=== PATIENT | male | born 1995 | race Two or more races ===

== ENCOUNTER 2024-07-02 15:13 | Emergency (ER) | payer MEDICAID, SELFPAY ==
--- NOTE | 2024-07-02 15:16 | EKG_ITS ---
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
[2024-07-02 15:20] VITALS: BP 165/107; PULSE 127; RESP 18; TEMP 37.1; O2SAT 97
[2024-07-02 15:36] VITALS: BMI 33.5
--- NOTE | 2024-07-02 15:52 | EDNOTE_ITS ---
ED Arrhythmia Palp. RME/HPI General Chief Complaint: Arrhythmia/Palpitations Stated Complaint: MEDICAL CLEARANCE Time Seen by Provider: 07/02/24 15:16 Arrival date/time: 07/02/24 15:13 RME / HPI RME / HPI narrative: This section includes all my notes and documentations, including HPI, PE, and ED course. Wiliam Dockery MD HPI: 29-year-old male here for medical clearance for incarceration due to high BP and fast heart rate. Patient admits to using speed. He reports no chest pain or shortness of breath. No headache or dizziness. No palpitations. No other complaints. ROS: All negative except as documented in HPI. Physical Exam: General: Alert and oriented. No acute distress. Eyes: Conjunctivae and lids clear. EOMI. PERRL. ENT: No nasal congestion. Neck: Supple. No JVD. Heart: RRR. Lungs: No respiratory distress. Good air movement. No rhonchi, wheezing, rales. Abdomen: Soft and nontender. Normal bowel sounds. No distension. No rebound or guarding. Legs: No clubbing, cyanosis, edema. Skin: Warm and dry. Neuro: Alert and oriented X 3. Cranial Nerves II-XII grossly intact. No peripheral motor deficits. My interpretation of the EKG is sinus rhythm with nonspecific ST-T changes. Treatment here included oral metoprolol 100 mg and oral clonidine 0.3 mg. Significant improvement noted subjectively and objectively. Patient declined diagnostic tests, including blood and urine tests. Based on my best medical judgment, made decision to medically clear the patient for incarceration and no further evaluation or treatment indicated at this time. Patient understands and agrees to the discharge instructions customized and printed, see below. Discharge instructions from Dr. Dockery: 1. After evaluation and treatment, including lowering your BP and heart rate, you are medically clear for incarceration. 2. See a private doctor on 07/03/2024 or when you are released for recheck and further care. Ask to help you stay healthy, helping you to quit all drugs, helping to lower your BP and heart rate, helping you to prevent future heart attacks and strokes, and with regular physical exam and health maintenance. 3. Seek immediate medical care with chest pain or with any concerns. Wiliam Dockery MD Related Data Previous Rx's ?Medication ?Instructions ?Recorded alprazolam 0.25 mg tablet (Xanax) 0.25 mg PO BID PRN anxiety #10 tabs 01/09/20 Allergies Allergy/AdvReac Type Severity Reaction Status Date / Time No Known Allergies Allergy Verified 01/09/20 11:17 Course Quality Measures none Orders Category Date Time Status EKG (ED ONLY) *Do not use* NOW Care 07/02/24 15:16 Active EKG (ED Only) Stat Exams 07/02/24 15:16 Draft Metoprolol Tartrate [Lopressor] Med 07/02/24 15:51 Once 100 mg PO X1 ONE cloNIDine HCL [Catapres] Med 07/02/24 15:51 Once 0.3 mg PO X1 ONE Vital Signs Vital signs: Vital Signs Temperature 98.7 F 07/02/24 15:20 Pulse Rate 127 H 07/02/24 15:20 Respiratory Rate 18 07/02/24 15:20 Blood Pressure 165/107 H 07/02/24 15:20 Pulse Oximetry (%) 97 07/02/24 15:20 Oxygen Delivery Method Room Air 07/02/24 15:20 Arrhythmia/Palpitations Patient data External records reviewed:: [facility] previous records Clinical information provided by:: patient and law enforcement Social determinants that could affect healthcare access:: substance use Patient has the following chronic illnesses:: Substance abuse How is presenting disease/condition affected by chronic disease/condition?: exac erbated by Evaluation data The following diagnostics were reviewed and interpreted by me:: EKG tracing(s) (My interpretation of the EKG is: Sinus tachycardia (130 bpm) with nonspecific ST-T changes. Wiliam Dockery MD) Lab and/or radiology exams considered but not ordered:: None Interpretation Summary: Sinus tachycardia and elevated BP Medications / Prescriptions Medications or Prescriptions considered but not ordered:: None Medication administrations:: Medication Administration History Clonidine (Clonidine Hcl 0.1 Mg Tablet) 0.3 mg PO X1 ONE Stop: 07/02/24 15:52 Metoprolol Tartrate (Metoprolol Tartrate 25 Mg Tablet) 100 mg PO X1 ONE Stop: 07/02/24 15:52 Consultations Consultation(s) initiated? (list below): No Diagnosis Differential diagnosis arrhythmia/palpitations: palpitations, anxiety and sinus tachycardia Most likely diagnosis given after review of the tests above:: Sinus tachycardia and elevated BP Admission Indicated Admission indicated?: not indicated Explain why admission is indicated or not indicated:: Admission criteria not met Admission Request Was there a request for admission?: No Disposition Plan Disposition Plan: Discharge Discharge Attestation Discharge Attestation: The patient and all family members were given an opportunity to ask questions and understood the discharge instructions. Discharge instructions specifically effects, indications for sooner follow up or return to the emergency department, and the expected course of current diagnosis. Patient condition: Stable Discharge Plan Plan Patient Disposition: Half-Way/Court/Law Prescriptions/Referrals Prescriptions/Med Rec: No Action alprazolam [Xanax] 0.25 mg tablet 0.25 mg PO BID PRN (Reason: anxiety) Qty: 10 0RF Problem List Clinical Impression: Medical clearance for incarceration Patient/Caregiver Discharge Instructions Discharge Activity: activity as tolerated Education Materials: ED Drug Abuse, ED Hypertension, To Be Confirmed Additional Instructions: Discharge instructions from Dr. Dockery: 1. After evaluation and treatment, including lowering your BP and heart rate, you are medically clear for incarceration. 2. See a private doctor on 07/03/2024 or when you are released for recheck and further care. Ask to help you stay healthy, helping you to quit all drugs, helping to lower your BP and heart rate, helping you to prevent future heart attacks and strokes, and with regular physical exam and health maintenance. 3. Seek immediate medical care with chest pain or with any concerns. Print Language: Mongolian
[2024-07-02 16:06] VITALS: BP 165/107; PULSE 127
[2024-07-02] MEDS: cloNIDine HCL 0.1 MG TABLET 0.3 MG PO (16:06)
[2024-07-02 16:07] VITALS: BP 165/107; PULSE 127
[2024-07-02] MEDS: METOPROLOL TARTRATE 25 MG TABLET 100 MG PO (16:07)
[2024-07-02 16:09] VITALS: BP 174/110; PULSE 128; RESP 16; TEMP 36.9; O2SAT 95
== END 2024-07-02 17:13 ==
PROVIDERS: Emergency Provider Emergency Medicine
DX: Z02.89 Encounter for other administrative examinations (principal); R00.0 Tachycardia, unspecified
CPT/HCPCS: 93005; 99283; A9270

== ENCOUNTER 2025-02-06 13:20 | Emergency (ER) | payer MEDICAID, SELFPAY ==
[2025-02-06 13:22] VITALS: BMI 35.9
[2025-02-06 13:41] VITALS: BP 157/89; PULSE 88; RESP 20; TEMP 36.7; O2SAT 96
[2025-02-06 14:24] LABS: Basophils # (Auto) 0.0 Thou/mm3 (0.0-0.2); Basophils % (Auto) 0 % (0-2.5); Eosinophils # (Auto) 0.1 Thou/mm3 (0.0-0.5); Eosinophils % (Auto) 1 % (0-10); Hematocrit 40.8 % (41.0-53.0); Hemoglobin 14.9 g/dL (13.5-16.0); Immature Granulocytes Auto 0.04 Thou/mm3 (0.00-0.00); Lymphocytes # (Auto) 1.9 Thou/mm3 (1.0-4.8); Lymphocytes % (Auto) 15 % (10-50); Mean Corpuscular HGB Conc 36.5 g/dl (31.0-37.0); Mean Corpuscular Hemoglobin 30.3 pg (25.0-35.0); Mean Corpuscular Volume 83 fL (80-100); Monocytes # (Auto) 0.8 Thou/mm3 (0.0-0.8); Monocytes % (Auto) 6 % (0-12); Neutrophils # (Auto) 9.5 Thou/mm3 (1.8-7.7); Neutrophils % (Auto) 78 % (37-80); Nucleated Red Blood Cell # 0.00 Thou/mm3 (0.00-0.00); Nucleated Red Blood Cell % 0 /100 WBC (0); Platelet Count 257 Thou/mm3 (140-440); RDW Standard Deviation 38.2 fL (35.1-43.9); Red Blood Count 4.92 Miln/mm3 (4.50-5.90); White Blood Count 12.3 Thou/mm3 (3.8-10.6)
--- NOTE | 2025-02-06 14:33 | EDNOTE_ITS ---
ED Psych RME/HPI General Chief Complaint: Psychiatric Symptoms Stated Complaint: SI, SELF HARM, + AUDITORY HALLUCINATIONS Time Seen by Provider: 02/06/25 14:10 Arrival date/time: 02/06/25 13:20 Limitations: no limitations RME / HPI RME / HPI Narrative: DR. BACA MAIN ED EVALUATION: 29 year old male presents to the Emergency Department with complaint of suicidal ideation, reporting statements such as ?trying to hang myself.? Patient was accompanied by a friend who escorted them in. The patient has a known history of bipolar disorder, diabetes, and substance use disorder. They report a prior suicide attempt by hanging approximately 1.5 years ago. Recently released from incarceration after 10 years, and currently admits to active drug use. Denies current physical injury, but states ongoing emotional distress and suicidal thoughts. Related Data Previous Rx's ?Medication ?Instructions ?Recorded alprazolam 0.25 mg tablet (Xanax) 0.25 mg PO BID PRN a nxiety #10 tabs 01/09/20 Allergies Allergy/AdvReac Type Severity Reaction Status Date / Time No Known Allergies Allergy Verified 02/06/25 13:24 Review of Systems Review of Systems Systems Reviewed: All systems reviewed, normal except as documented Past Medical History Past Medical History CARDIAC: Positive Hypertension GASTROINTESTINAL: Positive Obesity PSYCHO/SOCIAL: Positive Psychiatric Problems, Schizophrenia, Bipolar Disorder, Depression, Anxiety and Behavior Problems Social History SMOKING STATUS: Current every day smoker ED Exam General Limitations: Present no limitations General appearance: Present alert and in no apparent distress Head Head exam: Present atraumatic, normocephalic and normal inspection Eye Eye exam: Present normal appearance, PERRL and EOMI ENT ENT exam: Present normal exam, normal oropharynx and mucous membranes moist Neck Neck exam: Present normal inspection, full ROM and trachea midline Chest Chest inspection: Present normal inspection and symmetric chest wall rise Respiratory Respiratory exam: Present normal lung sounds bilaterally Cardiovascular Cardiovascular exam: Present regular rate, normal rhythm and normal heart sounds Abdominal Exam Abdominal exam: Present soft and normal bowel sounds Extremities Exam Extremities exam: Present normal inspection and full ROM Back Exam Back exam: Present normal inspection and full ROM Neurological Exam Neurological exam: Present alert, oriented X3 and CN II-XII intact Psychiatric Psychiatric exam: Present normal affect and normal mood Skin Skin exam: Present warm, dry, intact and normal color Course Quality Measures none Orders Category Date Time Status Acetaminophen Stat Lab 02/06/25 14:03 Completed Alcohol, Blood Medical Stat Lab 02/06/25 14:03 Completed Alcohol, Urine Stat Lab 02/06/25 15:12 Completed CBC Stat Lab 02/06/25 14:03 Completed CMP [Comprehensive Metabolic Panel] Stat Lab 02/06/25 14:03 Completed Drug Screen,Urine Stat Lab 02/06/25 15:12 Completed Salicylate Stat Lab 02/06/25 14:03 Completed LORazepam [Ativan] Med 02/06/25 14:33 Discontinued 1 mg PO X1 ONE Vital Signs Vital signs: Vital Signs Temperature 98.1 F 02/06/25 13:41 Pulse Rate 88 02/06/25 13:41 Respiratory Rate 20 02/06/25 13:41 Blood Pressure 157/89 H 02/06/25 13:41 Pulse Oximetry (%) 96 02/06/25 13:41 Oxygen Delivery Method Room Air 02/06/25 13:41 Psych MDM Narrative MDM Narrative:: ILakeshia am scribing for and in the presence of Dr. Baca. Patient data External records reviewed:: [facility] previous records Clinical information provided by:: patient Social determinants that could affect healthcare access:: substance use Patient has the following chronic illnesses:: The patient has a known history of bipolar disorder, diabetes, and substance use disorder. They report a prior suicide attempt by hanging approximately 1.5 years ago. How is presenting disease/condition affected by chronic disease/condition?: caused by Evaluation data The following diagnostics were reviewed and interpreted by me:: lab results Lab and/or radiology exams considered but not ordered:: none Interpretation Summary: no acute findings Medications / Prescriptions Medications or Prescriptions considered but not ordered:: none Medication administrations:: Medication Administration History Discontinued Medications Lorazepam (Lorazepam 0.5 Mg Tablet) 1 mg PO X1 ONE Stop: 02/06/25 14:34 Last Admin: 02/06/25 14:54 Dose: 1 mg Documented By: see above if any Consultations Consultation(s) initiated? (list below): Yes Diagnosis Psych Differential Diagnosis: acute psychosis, chronic schizophrenia, suicidal ideation, bipolar disorder, drug-induced psychotic disorder, acute anxiety and other Most likely diagnosis given after review of the tests above:: Chronic schizophrenia Bipolar disorder Admission Indicated Admission indicated?: not indicated Admission Request Was there a request for admission?: No Disposition Plan Disposition Plan: other (specify) (transfer to [facility]) Discharge Plan Plan Patient Disposition: [facility] Patient condition on transfer: Stable Prescriptions/Referrals Prescriptions/Med Rec: No Action alprazolam [Xanax] 0.25 mg tablet 0.25 mg PO BID PRN (Reason: anxiety) Qty: 10 0RF Referrals: No Primary/Family,Physician [Primary Care Provider] - In 1 week Problem List Clinical Impression: Chronic schizophrenia, Bipolar disorder Patient/Caregiver Discharge Instructions Print Language: Romansh Stand Alone Forms: [employer] Award Info., Patient Portal Info Letter
[2025-02-06 14:37] LABS: Alanine Aminotransferase 44 U/L (10-49); Albumin, Serum 4.6 gm/dL (3.5-5.0); Albumin/Globulin Ratio 1.4 (1.2-2.2); Alkaline Phosphatase 78 U/L (46-116); Anion Gap 9 (7-16); Aspartate Amino Transferase 29 U/L (0-34); BUN/Creatinine Ratio 13 Ratio (12-20); Bilirubin,Total 0.4 mg/dL (0.3-1.2); Blood Urea Nitrogen 13 mg/dL (9-23); Calcium 9.8 mg/dL (8.3-10.6); Calcium (Corrected) 9.8 mg/dL (8.5-10.1); Carbon Dioxide 26.0 mMol/L (20.0-31.0); Chloride 106 mMol/L (98-107); Creatinine (Component) 1.0 mg/dL (0.6-1.3); Estimated Creatinine Clearance 135.0 mL/min (>60); Globulin 3.2 gm/dL (2.3-3.5); Glucose 284 mg/dL (74-106); Osmolality,Calculated 291 (275-295); Potassium 4.3 mMol/L (3.4-5.1); Sodium 141 mMol/L (136-145); Total Protein 7.8 gm/dL (5.7-8.2); eGFR > 60 See Note
[2025-02-06 15:29] LABS: Acetaminophen < 2.0 mcg/mL (10.0-20.0); Alcohol, Blood Medical < 10.0 mg/dL (0-10.0); Salicylate < 3.0 mg/dL
[2025-02-06 15:30] LABS: Alcohol, Urine Negative (Negative); Amphetamine/Methamp Scrn,U Negative (Negative); Barbiturate Screen,Urine Negative (Negative); Benzodiazepines Screen,Urine Negative (Negative); Benzoylecgonine Screen, Ur Negative (Negative); Fentanyl Screen,Urine Negative (Negative); Opiate Screen,Urine Negative (Negative); THC Screen,Urine Negative (Negative)
[2025-02-06 16:04] VITALS: BP 155/84; PULSE 74; RESP 16; TEMP 37.3; O2SAT 100
--- NOTE | 2025-02-06 16:08 | PC.CC ---
Patient is a 29 year-old male who presents to the hospital for a mental health evaluation due to suicidal ideation with plan and intention. OFEWLc made [id number] contact with patient to complete assessment. ASW introduced self, role, and reason for assessment. ASW disclosed limits of confidentiality as well. Patient appeared alert and oriented to self, place, and situation. Patient made appropriate eye contact with this race and sports book writer. Patients mood appeared to euthymic throughout assessment, patient had good insight and judgement. No signs of delusions, paranoid or V/h. Patient reports he has been having suicidal ideations that started today. Patient reports he wanted to get something to hang himself. ASW explored with patient what stopped him he reports that there was too many people around. Patient reports his baseline is having auditory hallucinations and hears voices calling his name daily. Patient disclosed he has been having signs of . Patient stated, ?Who knows what could happen I could burn myself or self-mutilate.? Patient reports I can wake up and kill myself tomorrow. At the time of encounter patient denied homicidal ideations and visual hallucinations. Patient reports he has mental health history of Schizophrenia-Bipolar Type and Major Depressive Disorder. Patient reports he was recently released from incarceration and was released with 10mg of Ambilify. Patient is not currently connected to outpatient mental health services and reports the last time he was connected was to [facility]. Per patient, he has been incarcerated for the 10 years off and on. ? Patient reports he has been placed on 2 5150-holds in the past but does not recall the dates. Patient reports that one was for OD on pills and the other was for self-mutilation. Patient reports he ambulates independently and is able to complete his own ADLs. Patient?s [place] Screening was High Risk. Patient toxicology was negative. Patient reports he does not feel safety planning as he could wake up tomorrow and attempt suicide. Upon clinical consultation with VIDEO PRODUCER, Sherin Strange patient will be placed on a 5150-hold for Danger to Others. Patient was provided with advisement of 5150-hold and provided with patient?s rights handbook. ASW provided update to medical team. ASW to send referral via [facility] to [facility] Facilities.
--- NOTE | 2025-02-06 17:20 | PC.CC ---
Xiomy MURILLO was provided with accepting information. Patient was accepted to [facility] by Dr. Whitmore into [address]. ASW provided update to patient and medical team. ASW to arrange transportation.
[2025-02-06 18:29] VITALS: BP 149/86; PULSE 88; RESP 18; TEMP 36.7; O2SAT 97
[2025-02-06 20:02] VITALS: BP 130/78; PULSE 78; RESP 19; TEMP 36.9; O2SAT 98
--- NOTE | 2025-02-06 20:36 | PC.NURSE ---
PREVIOUS DAY GEE RG GAVE HANDOFF WITH PATIENT SEARCHED AND ROOM CLEARED.
== END 2025-02-06 20:50 ==
PROVIDERS: Nurse Practitioner Primary Care; Emergency Provider Family Medicine
DX: Z00.8 Encounter for other general examination (principal); F20.9 Schizophrenia, unspecified; F31.9 Bipolar disorder, unspecified; Z75.1 Person awaiting admission to adequate facility elsewhere
CPT/HCPCS: 36415; 80053; 80307; 80320; 80329; 85025; 96127; 99284; A9270; G0480

== ENCOUNTER 2025-06-20 01:04 | Inpatient (IN) | payer MEDICAID, SELFPAY ==
[2025-06-20] VITALS (30 sets, daily range): BP systolic 126–170; BP diastolic 69–124; PULSE 86–130; RESP 12–99; TEMP 36.3–37.3; O2SAT 95–99; BMI 33.4; BMI 33.6
--- NOTE | 2025-06-20 01:43 | EKG_ITS ---
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
--- NOTE | 2025-06-20 01:54 | EDNOTE_ITS ---
Nausea/Vomit./Diarrhea-RME/HPI General Chief complaint: Nausea/Vomiting/Diarrhea Stated complaint: HEART BURN Time Seen by Provider: 06/20/25 01:43 Arrival date/time: 06/20/25 01:04 30M with history of psych/drug use (meth 2 days ago) and DM presents to ED with epigastric heartburn pain that goes to throat, as well as N/V. Patient denies recent alcohol use. Limitations: no limitations Related Data Home Medications ?Medication ?Instructions ?Recorded ?Confirmed divalproex 500 mg tablet,extended 1,500 mg PO HS 06/2006/20/25 release 24 hr (Depakote ER) quetiapine 400 mg tablet,extended 400 mg PO HS 5 06/20/25 release 24 hr (Seroquel XR) Allergies Allergy/AdvReac Type Severity Reaction Status Date / Time No Known Allergies Allergy Verified 02/06/25 13:24 Review of Systems Review of Systems Systems Reviewed: All systems reviewed, normal except as documented Gastrointestinal Gastrointestinal: Reports as per HPI, Reports abdominal pain, Reports nausea and Reports vomiting Past Medical History Past Medical History CARDIAC: Positive Hypertension; Negative Congestive Heart Failure RESPIRATORY: Negative Chronic Obstructive Pulmonary Disease (COPD) GASTROINTESTINAL: Positive Obesity GENITOURINARY: Negative Renal Disease ENDOCRINE: Negative Diabetes Mellitus Type 1 or Diabetes Mellitus Type 2 PSYCHO/SOCIAL: Positive Psychiatric Problems, Schizophrenia, Bipolar Disorder, Depression, Anxiety and Behavior Problems Social History SMOKING STATUS: Current every day smoker ED Exam General Limitations: Present no limitations General appearance: Present alert and anxious Head Head exam: Present atraumatic ENT ENT exam: Present normal exam, normal oropharynx and mucous membranes moist Neck Neck exam: Present normal inspection, full ROM and trachea midline Chest Chest inspection: Present normal inspection and symmetric chest wall rise Abdominal Exam Abdominal exam: Present soft; Absent tenderness Neurological Exam Neurological exam: Present alert and oriented X3 Psychiatric Psychiatric exam: Present normal affect and anxious Skin Skin exam: Present warm, dry, intact and normal color Course Quality Measures none Orders Category Date Time Status Admit to Inpatient Status Routine Admission 06/20/25 06:11 Active Patient Condition Routine Admission 06/20/25 06:11 Ordered Bedside Blood Glucose Q1H Care 06/20/25 06:08 Active Music Education Adjunct Professor Q4H Care 06/20/25 06:08 Active DKA Protocol QSHIFT Care 06/20/25 06:08 Active EKG (ED ONLY) *Do not use* NOW Care 06/20/25 01:43 Completed Insert IV NOW Care 06/20/25 01:43 Active NPO NOW Care 06/20/25 06:10 Active Notify provider NEEDED Care 06/20/25 06:08 Active Sequential Compression Device QSHIFT Care 06/20/25 06:10 Active Referral Registered Dietitian Routine Cons 06/20/25 06:08 Active Diet NPO (NOW) Diet 06/20/25 06:10 Active EKG (ED Only) Stat Exams 06/20/25 01:43 Draft XR chest 1V portable Stat Exams 06/20/25 05:24 Completed Alcohol, Blood Medical Stat Lab 06/20/25 02:02 Completed Beta Hydroxybutyrate DAILY Lab 06/21/25 09:00 Ordered Beta Hydroxybutyrate DAILY Lab 06/22/25 09:00 Ordered Beta Hydroxybutyrate DAILY Lab 06/23/25 09:00 Ordered Beta Hydroxybutyrate Stat Lab 06/20/25 05:30 Completed Blood Culture (Lab) Routine Lab 06/20/25 07:10 Received CBC AM DRAW Lab 06/21/25 05:00 Ordered CBC AM DRAW Lab 06/22/25 05:00 Ordered CBC AM DRAW Lab 06/23/25 05:00 Ordered CBC Stat Lab 06/20/25 02:02 Completed CMP [Comprehensive Metabolic Panel] Stat Lab 06/20/25 02:02 Completed Glycohemoglobin w (eAG) Routine Lab 06/20/25 07:05 Completed Lactate (Lactic Acid) Q4H Lab 06/20/25 10:03 Completed Lactate (Lactic Acid) Q4H Lab 06/20/25 14:04 Completed Lactate (Lactic Acid) Q4H Lab 06/20/25 18:15 Ordered Lactate (Lactic Acid) Q4H Lab 06/20/25 22:15 Ordered Lactate (Lactic Acid) Q4H Lab 06/21/25 02:15 Ordered Lactate (Lactic Acid) Q4H Lab 06/21/25 06:15 Ordered Lactate (Lactic Acid) Q4H Lab 06/21/25 10:15 Ordered Lactate (Lactic Acid) Q4H Lab 06/21/25 14:15 Ordered Lactate (Lactic Acid) Q4H Lab 06/21/25 18:15 Ordered Lactate (Lactic Acid) Q4H Lab 06/21/25 22:15 Ordered Lactate (Lactic Acid) Q4H Lab 06/22/25 02:15 Ordered Lactate (Lactic Acid) Q4H Lab 06/22/25 06:15 Ordered Lactate (Lactic Acid) Stat Lab 06/20/25 02:02 Completed Lipase Stat Lab 06/20/25 02:02 Completed Magnesium Q4H Lab 06/20/25 14:04 Completed Magnesium Q4H Lab 06/20/25 18:15 Ordered Magnesium Q4H Lab 06/20/25 22:15 Ordered Magnesium Q4H Lab 06/21/25 02:15 Ordered Magnesium Q4H Lab 06/21/25 06:15 Ordered Magnesium Q4H Lab 06/21/25 10:15 Ordered Magnesium Q4H Lab 06/21/25 14:15 Ordered Magnesium Q4H Lab 06/21/25 18:15 Ordered Magnesium Q4H Lab 06/21/25 22:15 Ordered Magnesium Q4H Lab 06/22/25 02:15 Ordered Magnesium Q4H Lab 06/22/25 06:15 Ordered Magnesium Stat Lab 06/20/25 02:02 Completed Phosphorous Q4H Lab 06/21/25 02:15 Ordered Phosphorous Q4H Lab 06/21/25 06:15 Ordered Phosphorous Q4H Lab 06/21/25 10:15 Ordered Phosphorous Q4H Lab 06/21/25 14:15 Ordered Phosphorous Q4H Lab 06/21/25 18:15 Ordered Phosphorous Q4H Lab 06/21/25 22:15 Ordered Phosphorous Q4H Lab 06/22/25 02:15 Ordered Phosphorous Q4H Lab 06/22/25 06:15 Ordered Phosphorous Stat Lab 06/20/25 05:30 Completed Procalcitonin Stat Lab 06/20/25 02:02 Completed Renal Function Panel Q4H Lab 06/20/25 14:04 Completed Renal Function Panel Q4H Lab 06/20/25 18:15 Ordered Renal Function Panel Q4H Lab 06/20/25 22:15 Ordered Renal Function Panel Q4H Lab 06/21/25 02:15 Ordered Renal Function Panel Q4H Lab 06/21/25 06:15 Ordered Renal Function Panel Q4H Lab 06/21/25 10:15 Ordered Renal Function Panel Q4H Lab 06/21/25 14:15 Ordered Renal Function Panel Q4H Lab 06/21/25 18:15 Ordered Renal Function Panel Q4H Lab 06/21/25 22:15 Ordered Renal Function Panel Q4H Lab 06/22/25 02:15 Ordered Renal Function Panel Q4H Lab 06/22/25 06:15 Ordered Troponin I Stat Lab 06/20/25 02:02 Completed VBG [Venous Blood Gas] Stat Lab 06/20/25 05:30 Completed Dextrose 5%-Lactated Ringers [D5-Lr] 1,000 ml Med 06/20/25 06:08 Active Pot Chl Additive [KCl Additive] 20 meq IV 250 mls/hr Dextrose 5%-Lactated Ringers [D5-Lr] 1,000 ml Med 06/20/25 06:08 Active Pot Chl Additive [KCl Additive] 40 meq IV 250 mls/hr Dextrose 5%-Lactated Ringers [D5-Lr] 1,000 ml Med 06/20/25 06:08 Active IV 250 mls/hr Dextrose 50% Syr [D50w Syringe Abboject] Med 06/20/25 06:08 Active 25 ml IV PRNMRX1 PRN Insulin Regular Med 06/20/25 06:08 Discontinued 10.6 unit IV X1 ONE Magnesium Sulfate 2 GM Ivpb [Magnesium Sulfate Ivpb] Med 06/20/25 06:08 Active 2 gm in 50 ml IV 25 mls/hr Metoclopramide Inj [Reglan Inj] Med 06/20/25 03:47 Discontinued 10 mg IVP X1 ONE Ondansetron Inj [Zofran Inj] Med 06/20/25 01:43 Discontinued 4 mg IVP X1 ONE POT PHOS 15 mMol in NS 250 ML [Pot Phos 15 mMol in NS Med 06/20/25 06:08 Active 250 ml] 15 mmol in 250 ml IV PRN POTASSIUM CHL 10 mEq IVPB [Kcl Ivpb] Med 06/20/25 06:08 Active 10 meq in 100 ml IV 100 mls/hr POTASSIUM CHL 10 mEq IVPB [Kcl Ivpb] Med 06/20/25 06:08 Active 10 meq in 100 ml IV PRN Pantoprazole Inj [Protonix Inj] Med 06/20/25 01:43 Discontinued 40 mg IVP X1 ONE Pre-Mixed [Pre-mixed Bag] 1 bag Med 06/20/25 06:08 Active Insulin Reg 100 Units/100 ml [Myxredlin] 100 unit IV 0.1 unit/kg/hr Ringers Lactated 1000 ml [Lactated Ringers] 1,000 ml Med 06/20/25 06:08 Active Pot Chl Additive [KCl Additive] 20 meq IV 250 mls/hr Ringers Lactated 1000 ml [Lactated Ringers] 1,000 ml Med 06/20/25 06:08 Active Pot Chl Additive [KCl Additive] 40 meq IV 250 mls/hr Ringers Lactated 1000 ml [Lactated Ringers] 1,000 ml Med 06/20/25 06:08 Active IV 250 mls/hr Ringers Lactated 1000 ml [Lactated Ringers] 1,000 ml Med 06/20/25 05:11 Discontinued IV 999 mls/hr Ringers Lactated 1000 ml [Lactated Ringers] 1,000 ml Med 06/20/25 05:16 Discontinued IV 999 mls/hr Sodium Bicarb 8.4% SYR Med 06/20/25 06:08 Active 50 ml IV Q4HR PRN Sodium Chloride 0.9% 1000 ml [Ns] 1,000 ml Med 06/20/25 01:43 Discontinued IV 999 mls/hr Sodium Chloride 0.9% 250 ml [Ns] 250 ml Med 06/20/25 06:08 Active Sod Phos Additive [NaPhos Additive] 15 mmol IV 62.5 mls/hr Code Status Routine Oth 06/20/25 06:10 Ordered Vital Signs Vital signs: Vital Signs Temperature 98.5 F 06/20/25 01:38 Pulse Rate 130 H 06/20/25 01:38 Respiratory Rate 20 06/20/25 01:38 Blood Pressure 170/124 H 06/20/25 01:38 Pulse Oximetry (%) 96 06/20/25 01:38 Oxygen Delivery Method Room Air 06/20/25 01:38 O2 at 96% on RA and WNLs Nausea/Vomiting/Diarrhea MDM Narrative MDM Narrative:: 30M with history of psych/drug use (meth 2 days ago) and DM presents to ED with epigastric heartburn pain that goes to throat, as well as N/V. Patient denies recent alcohol use. Physical exam reveals no ab tenderness. Clear oropharynx. Patient is actively having N/V. Patient is afebrile, alert, but anxious. EKG is sinus tach of 132. Normal trop. Moderate leukocytosis. CMP remarkable for elevated BS and anion gap, with low bicarb. Mildly elevated Cr with normal procal/lactate. Lipase and mag also normal. Likely DKA. Care signed out to Antwon [employer] who signed it out to Dr. Haines pending VBG, Beta, phosphorus and dispo. Patient eventually admitted for DKA. Patient data External records reviewed:: [facility] previous records Clinical information provided by:: patient Social determinants that could affect healthcare access:: mental health Patient has the following chronic illnesses:: drug/psych and DM How is presenting disease/condition affected by chronic disease/condition?: exacerbated by Evaluation data The following diagnostics were reviewed and interpreted by me:: lab results and radiology exam(s) Lab and/or radiology exams considered but not ordered:: ordered Interpretation Summary: above Medications / Prescriptions Medications / Prescriptions considered but not ordered:: ordered Medication administrations:: Medication Administration History Acetaminophen (Acetaminophen 325 Mg Tablet) 325 mg PO Q6HR PRN PRN Reason: Fever > 100.4 Stop: 07/20/25 10:44 Acetaminophen (Acetaminophen 325 Mg Tablet) 650 mg PO Q6H PRN PRN Reason: PAIN 1- 3 Stop: 07/20/25 06:12 Last Admin: 06/20/25 15:58 Dose: 650 mg Documented By: AC Amoxicillin/Clavulanate Potassium (Amoxicillin/Pot Clav Susp 400 Mg/5 Ml) 875 mg PO BID BELKYS Stop: 06/27/25 20:59 Dextrose (Dextrose 50%-Water Inj 50 Ml Syringe) 25 ml IV PRNMRX1 PRN PRN Reason: Blood Sugar - Low Potassium Chloride 20 meq/ (Dextrose/Lactated Ringer's) 1,010 mls @ 250 mls/hr IV .Q4H3M PRN PRN Reason: K LEVEL 3.3 TO 5.3 mM/L Stop: 07/20/25 06:07 Last Admin: 06/20/25 15:32 Dose: 250 mls/hr Documented By: donnie Infusion: 06/20/25 14:17 Dose: Infused Documented By: donnie Infusion: 06/20/25 13:00 Dose: 250 mls/hr Documented By: donnie Infusion: 06/20/25 12:02 Dose: 0 mls/hr Documented By: Admin: 06/20/25 09:16 Dose: 250 mls/hr Documented By: BY Potassium Chloride 40 meq/ (Dextrose/Lactated Ringer's) 1,020 mls @ 250 mls/hr IV .Q4H5M PRN PRN Reason: K LEVEL < 3.3mM/L Stop: 07/20/25 06:07 Potassium Chloride (Kcl Ivpb) 10 meq in 100 mls @ 100 mls/hr IV .Q1H PRN PRN Reason: IF POTASSIUM LESS THAN 3.3 Stop: 07/20/25 06:07 Magnesium Sulfate (Magnesium Sulfate Ivpb) 2 gm in 50 mls @ 25 mls/hr IV .Q2H PRN PRN Reason: PER DKA PROTOCOL Stop: 07/20/25 06:07 Last Admin: 06/20/25 11:41 Dose: 25 mls/hr Documented By: BY Insulin Human Regular 100 unit (/ IV Miscellaneous Supplies) 100 mls @ 10.569 mls/hr IV .Q9H28M PRN; Protocol PRN Reason: PER PROTOCOL Stop: 07/20/25 06:07 Last Titration: 06/20/25 18:00 Dose: 0.05 unit/kg/hr, 5.284 mls/hr Documented By: JOSUE Co-signed By: ABUNM Titration: 06/20/25 17:00 Dose: 0.05 unit/kg/hr, 5.284 mls/hr Documented By: AC Co-signed By: MG Titration: 06/20/25 16:00 Dose: 0.05 unit/kg/hr, 5.284 mls/hr Documented By: AC Co-signed By: ABUNM Titration: 06/20/25 15:00 Dose: 0.05 unit/kg/hr, 5.284 mls/hr Documented By: donnie Co-signed By: MGD Titration: 06/20/25 14:00 Dose: 0.05 unit/kg/hr, 5.284 mls/hr Documented By: donnie Co-signed By: MG Titration: 06/20/25 13:00 Dose: 0.025 unit/kg/hr, 2.642 mls/hr Documented By: donnie Co-signed By: MGD Titration: 06/20/25 12:00 Dose: 0.1 unit/kg/hr, 10.6 mls/hr Documented By: BY Co-signed By: TM Titration: 06/20/25 11:00 Dose: 0.05 unit/kg/hr, 5.3 mls/hr Documented By: BY Co-signed By: Titration: 06/20/25 10:00 Dose: 0.04 unit/kg/hr, 4.16 mls/hr Documented By: BY Co-signed By: Titration: 06/20/25 09:00 Dose: 0.05 unit/kg/hr, 5.284 mls/hr Documented By: BY Co-signed By: donnie Admin: 06/20/25 06:32 Dose: 0.1 unit/kg/hr, 10.569 mls/hr Documented By: JOSUE(2) Co-signed By: Dextrose/Lactated Ringer's (D5-Lr) 1,000 mls @ 250 mls/hr IV .Q4H PRN PRN Reason: PER PROTOCOL Stop: 07/20/25 06:07 Lactated Ringer's (Lactated Ringers) 1,000 mls @ 250 mls/hr IV .Q4H PRN PRN Reason: PER PROTOCOL Stop: 06/21/25 06:07 Potassium Chloride 20 meq/ (Lactated Ringer's) 1,010 mls @ 250 mls/hr IV .Q4H3M PRN PRN Reason: K LEVEL 3.3 TO 5.3mM/L Stop: 07/20/25 06:07 Last Infusion: 06/20/25 13:00 Dose: 0 mls/hr Documented By: donnie Infusion: 06/20/25 12:09 Dose: 250 mls/hr Documented By: Infusion: 06/20/25 09:16 Dose: 0 mls/hr Documented By: Admin: 06/20/25 08:03 Dose: 250 mls/hr Documented By: BY Potassium Chloride 40 meq/ (Lactated Ringer's) 1,020 mls @ 250 mls/hr IV .Q4H5M PRN PRN Reason: K LEVEL < 3.3 mM/L Stop: 07/20/25 06:07 Potassium Chloride (Kcl Ivpb) 10 meq in 100 mls @ 50 mls/hr IV PRN PRN PRN Reason: K LEVEL 3.3 to 5.3 & BG > 200 Stop: 07/20/25 06:07 Potassium Phosphate (Pot Phos 15 Mmol In Ns 250 Ml) 15 mmol in 250 mls @ 62.5 mls/hr IV PRN PRN PRN Reason: Phosphate <= 1mg/dL Stop: 07/20/25 06:07 Sodium Phosphate 15 mmol/ (Sodium Chloride) 255 mls @ 62.5 mls/hr IV .Q4H5M PRN PRN Reason: Phosphate <= 1mg/dL and K> than 5.3 Stop: 07/20/25 06:07 Ibuprofen (Ibuprofen Tab 600 Mg Tablet) 600 mg PO Q8HR PRN PRN Reason: PAIN 1-3 OR FEVER > 101 Stop: 07/20/25 10:43 Ketorolac Tromethamine (Ketorolac Inj 30 Mg/Ml Vial) 30 mg IVP Q6HR PRN PRN Reason: PAIN SCALE 4-10(Mod-Sev Stop: 06/25/25 10:43 Ondansetron HCl (Ondansetron Inj 2 Mg/Ml Inj 2 Ml) 4 mg IV Q6H PRN; Protocol PRN Reason: NAUSEA OR VOMITING Stop: 07/20/25 06:12 Pantoprazole Sodium (Pantoprazole Inj 40 Mg Vial) 40 mg IVP BID [facility] Stop: 07/20/25 08:59 Last Admin: 06/20/25 09:09 Dose: 40 mg Documented By: BY Phenol/Menthol (Phenol/Na Phenolate (Chloraseptic) [place] 180 Ml Btl) 0 ml PO Q6HR PRN PRN Reason: SORE THROAT Stop: 07/20/25 10:48 Sodium Bicarbonate (Sodium Bicarb Inj 8.4% Syr 50 Ml Syringe) 50 ml IV Q4HR PRN PRN Reason: For ph <= to 7.0 Stop: 07/20/25 06:07 Discontinued Medications Acetaminophen (Acetaminophen 325 Mg Tablet) 650 mg PO Q6H PRN PRN Reason: PAIN 1- 10 OR FEVER > 101 Stop: 07/20/25 06:12 Amoxicillin/Clavulanate Potassium (Amoxicillin/Pot Clav 875 Tablet) 1 tab PO BID [facility] Stop: 06/27/25 10:44 Last Admin: 06/20/25 11:10 Dose: 1 tab Documented By: BY Amoxicillin/Clavulanate Potassium (Amoxicillin/Pot Clav Susp 400 Mg/5 Ml) 875 mg PO BID [facility] Stop: 06/27/25 10:44 Amoxicillin/Clavulanate Potassium (Amoxicillin/Pot Clav Susp 400 Mg/5 Ml) 875 mg PO BID BELKYS Stop: 06/27/25 16:34 Last Admin: 06/20/25 17:11 Dose: Not Given Documented By: JOSUE Non-Admin Reason: Discontinued Sodium Chloride (Ns) 1,000 mls @ 999 mls/hr IV .Q1H1M ONE Stop: 06/20/25 02:43 Last Infusion: 06/20/25 04:14 Dose: Infused Documented By: Admin: 06/20/25 03:10 Dose: 999 mls/hr Documented By: KEESHA Lactated Ringer's (Lactated Ringers) 1,000 mls @ 999 mls/hr IV .Q1H1M ONE Stop: 06/20/25 06:11 Last Infusion: 06/20/25 06:49 Dose: Infused Documented By: JOSUE(2) Admin: 06/20/25 05:24 Dose: 999 mls/hr Documented By: JOSUE(2) Lactated Ringer's (Lactated Ringers) 1,000 mls @ 999 mls/hr IV .Q1H1M ONE Stop: 06/20/25 06:16 Last Infusion: 06/20/25 06:49 Dose: Infused Documented By: JOSUE(2) Admin: 06/20/25 05:24 Dose: 999 mls/hr Documented By: JOSUE(2) Ceftriaxone Sodium/Dextrose (Rocephin/D5w 1gm Iv Premix) 1 gm in 50 mls @ 100 mls/hr IV QDAY BELKYS Stop: 06/27/25 06:27 Last Infusion: 06/20/25 10:13 Dose: Infused Documented By: Admin: 06/20/25 09:13 Dose: 50 mls/hr Documented By: Infusion: 06/20/25 07:02 Dose: Infused Documented By: Admin: 06/20/25 06:32 Dose: 100 mls/hr Documented By: JOSUE(2) Ibuprofen (Ibuprofen Tab 400 Mg Tablet) 600 mg PO X1 ONE Stop: 06/20/25 10:37 Last Admin: 06/20/25 10:45 Dose: 600 mg Documented By: BY Insulin Human Regular (Insulin Hum Regular 1 Unit/0.01 Ml (Per Unit)) 10.6 unit 0.1 unit/kg (10.6 unit) IV X1 ONE Stop: 06/20/25 06:09 Last Admin: 06/20/25 06:32 Dose: Not Given Documented By: JOSUE(2) Non-Admin Reason: Cancelled by Provider Metoclopramide HCl (Metoclopramide Inj 5 Mg/Ml Vial 2 Ml) 10 mg IVP X1 ONE; Protocol Stop: 06/20/25 03:48 Last Admin: 06/20/25 04:12 Dose: 10 mg Documented By: CALVIN Morphine Sulfate (Morphine Sulf Inj 4 Mg/Ml Vial) 0.5 mg IVP X1 ONE Stop: 06/20/25 10:25 Last Admin: 06/20/25 10:30 Dose: 0.5 mg Documented By: BY Ondansetron HCl (Ondansetron Inj 2 Mg/Ml Inj 2 Ml) 4 mg IVP X1 ONE; Protocol Stop: 06/20/25 01:44 Last Admin: 06/20/25 03:11 Dose: 4 mg Documented By: KEESHA Pantoprazole Sodium (Pantoprazole Inj 40 Mg Vial) 40 mg IVP X1 ONE Stop: 06/20/25 01:44 Last Admin: 06/20/25 03:10 Dose: 40 mg Documented By: KEESHA Sodium Chloride (Sodium Chloride Rt 10% 15 Ml Nebu) 5 ml INH X1 ONE Stop: 06/20/25 06:26 Last Admin: 06/20/25 08:58 Dose: Not Given Documented By: DAVY Non-Admin Reason: not needed above Consultations Consultation(s) initiated? (list below): Yes Diagnosis Nausea Differential Diagnosis: traveler's diarrhea, food poisoning, gastroenteritis, clostridium difficile infection, drug-induced nausea and vomiting, dehydration and other (gastritis/GERD, biliary disease, DKA) Most likely diagnosis given after review of the tests above:: DKA Admission Indicated Admission indicated?: indicated Admission Request Was there a request for admission?: Yes Admission Attestation Admission request attestation: Discussed case with [] from Hospitalist service regarding admission. Discussed patients ED course, exam findings, labs, and radiology results. The Hospitalist [agrees,declines] to accept the patient for admission. See addendum note. Disposition Plan Disposition Plan: Admit Discharge Plan Plan Patient Disposition: Admit Acute Care w/in Hospital Problem List Clinical Impression: DKA (diabetic ketoacidosis)
[2025-06-20 02:11] LABS: Lactate (Lactic Acid) 1.8 mMol/L (0.4-2.0)
[2025-06-20 02:15] LABS: Basophils # (Auto) 0.1 Thou/mm3 (0.0-0.2); Basophils % (Auto) 1 % (0-2.5); Eosinophils # (Auto) 0.0 Thou/mm3 (0.0-0.5); Eosinophils % (Auto) 0 % (0-10); Hematocrit 50.8 % (41.0-53.0); Hemoglobin 18.8 g/dL (13.5-16.0); Immature Granulocytes Auto 0.11 Thou/mm3 (0.00-0.00); Lymphocytes # (Auto) 2.4 Thou/mm3 (1.0-4.8); Lymphocytes % (Auto) 14 % (10-50); Mean Corpuscular HGB Conc 37.0 g/dl (31.0-37.0); Mean Corpuscular Hemoglobin 31.3 pg (25.0-35.0); Mean Corpuscular Volume 85 fL (80-100); Monocytes # (Auto) 2.2 Thou/mm3 (0.0-0.8); Monocytes % (Auto) 13 % (0-12); Neutrophils # (Auto) 12.5 Thou/mm3 (1.8-7.7); Neutrophils % (Auto) 72 % (37-80); Nucleated Red Blood Cell # 0.00 Thou/mm3 (0.00-0.00); Nucleated Red Blood Cell % 0 /100 WBC (0); Platelet Count 244 Thou/mm3 (140-440); RDW Standard Deviation 38.7 fL (35.1-43.9); Red Blood Count 6.01 Miln/mm3 (4.50-5.90); White Blood Count 17.4 Thou/mm3 (3.8-10.6)
[2025-06-20] MEDS: SODIUM CHLORIDE 0.9% 1000 ML 1,000 ML 999 ML IV (03:10)
[2025-06-20] MEDS: ONDANSETRON INJ 2 MG/ML INJ 2 ML 4 MG IVP (03:11)
[2025-06-20] MEDS: METOCLOPRAMIDE INJ 5 MG/ML VIAL 2 ML 10 MG IVP (04:12)
[2025-06-20 04:58] LABS: Alanine Aminotransferase 51 U/L (10-49); Albumin, Serum 5.4 gm/dL (3.5-5.0); Albumin/Globulin Ratio 1.6 (1.2-2.2); Alcohol, Blood Medical < 3.0 mg/dL (0-10.0); Alkaline Phosphatase 100 U/L (46-116); Anion Gap 22 (7-16); Aspartate Amino Transferase 65 U/L (0-34); BUN/Creatinine Ratio 8 Ratio (12-20); Bilirubin,Total 0.7 mg/dL (0.3-1.2); Blood Urea Nitrogen 12 mg/dL (9-23); Calcium 9.5 mg/dL (8.3-10.6); Calcium (Corrected) 9.5 mg/dL (8.5-10.1); Chloride 96 mMol/L (98-107); Creatinine (Component) 1.5 mg/dL (0.6-1.3); Estimated Creatinine Clearance 86.1 mL/min (>60); Globulin 3.4 gm/dL (2.3-3.5); Glucose 374 mg/dL (74-106); Lipase 25 U/L (12-53); Magnesium 2.0 mg/dL (1.6-2.6); Osmolality,Calculated 279 (275-295); Potassium 4.4 mMol/L (3.4-5.1); Procalcitonin 0.10 ng/ml (0.0-0.49); Sodium 132 mMol/L (136-145); Total Protein 8.8 gm/dL (5.7-8.2); Troponin I < 0.020 ng/mL (0.0-0.045); eGFR > 60 See Note
[2025-06-20 05:03] LABS: Carbon Dioxide 13.6 mMol/L (20.0-31.0)
[2025-06-20] MEDS: RINGERS LACTATED 1000 ML 1,000 ML 999 ML IV ×2 (05:24)
--- NOTE | 2025-06-20 05:24 | XR_ITS ---
EXAMINATION: AP chest single view TECHNIQUE: AP portable upright chest single view Date and time: June 12, 2025, 0605 hours, comparison June 29, 2009 INDICATIONS: Shortness of breath today FINDINGS: Normal heart size Lungs are clear. Osseous structures are intact. IMPRESSION: No pneumonia or pulmonary edema
[2025-06-20 05:58] LABS: Base Excess, Venous -9 (-3-3); O2 Saturation, Venous 53 % (96-97); PCO2, Venous 46 mmHg (36-56); PO2, Venous 29 mmHg (15-58); pH, Venous 7.22 (7.33-7.66)
[2025-06-20 06:08] LABS: Beta Hydroxybutyrate 5.0 mmol/L (<0.6)
--- NOTE | 2025-06-20 06:17 | PD.RESHP ---
Documentation for date of: 06/20/25 HPI History of Present Illness History of present illness: The patient is a 30-year-old male with a past medical history of Schizoaffective disorder, substance abuse disorder, suicidal ideation, diabetes mellitus, who came to the ER complaining of nausea vomiting, pain in his throat and cough. Patient also reported 1 episode of blood-tinged vomitus. Patient denied any melena or hematochezia. Endorsed abdominal pain and burning sensation in his throat and epigastrium. Endorsed subjective complaint of fever and productive cough. Per patient, he is not aware of diagnosis of diabetes mellitus, and is taking no medications for it. Patient denied chest pain, seizures, loss of consciousness. Denied suicidal ideation. Denied diarrhea, constipation. In the ED, noted blood pressure 160/95, heart rate 120/min, afebrile. EKG showed sinus tachycardia heart rate 132, noted T inversions in 1 aVL which are consistent with prior EKG, no new acute ischemic changes noted, troponin is not within normal limits, noted leukocytosis and polycythemia on CBC, CMP remarkable for high anion gap metabolic acidosis and elevated blood glucose, lactic acid within normal limits, chest x-ray was ordered pending radiologist read, urinalysis ordered pending. Patient admitted for management of DKA and GI bleed. PMH: Schizoaffective disorder, substance abuse disorder, suicidal ideation, diabetes mellitus Past Surgical Hx: No pertinent surgical history reported Family Hx: Family history of diabetes mellitus Social Hx: Patient was released from incarceration few months ago, currently lives with family, endorses methamphetamine abuse, last intake 2 days ago, endorses cigarette smoking, denies marijuana, cocaine or alcohol use. Review of Systems Review of Systems Systems Reviewed: All systems reviewed, normal except as documented Past Medical History Past Medical History CARDIAC: Positive Hypertension; Negative Congestive Heart Failure RESPIRATORY: Negative Chronic Obstructive Pulmonary Disease (COPD) GASTROINTESTINAL: Positive Obesity GENITOURINARY: Negative Renal Disease ENDOCRINE: Positive Diabetes Mellitus Type 2; Negative Diabetes Mellitus Type 1 PSYCHO/SOCIAL: Positive Psychiatric Problems, Schizophrenia, Bipolar Disorder, Depression, Anxiety and Behavior Problems Social History SMOKING STATUS: Current every day smoker Exam Vital Signs Temp Pulse Resp BP Pulse Ox O2 Del Method 98.6 F 122 H 20 157/95 H 96 Room Air 06/20/25 04:48 06/20/25 04:48 06/20/25 04:48 06/20/25 04:48 06/20/25 04:48 06/20/25 04:48 Narrative Exam General: AOx3, cooperative, anxious affect Skin: Intact, no cyanosis or edema noted. HEENT: Atraumatic/normocephalic, FLY, neck supple Heart: RRR, S1 and S2 without clicks or murmurs Lungs: Clear on auscultation bilaterally, no difficulty breathing Abdomen: Soft, nontender. Bowel sounds present . Vascular: Peripheral pulses palpable Neuro: No focal neurological deficits noted. Results: Labs 06/21/25 03:20 06/21/25 07:25 Labs: Short CBC 06/20/25 Range/Units 02:02 WBC 17.4 H (3.8-10.6) Thou/mm3 Hgb 18.8 H* (13.5-16.0) g/dL Hct 50.8 (41.0-53.0) % Plt Count 244 (140-440) Thou/mm3 BMP 06/20/25 02:02 Sodium 132 L Potassium 4.4 Chloride 96 L Carbon Dioxide 13.6 L* BUN 12 Creatinine 1.5 H Glucose 374 H Calcium 9.5 Cardiac Enzymes 06/20/25 Range/Units 02:02 Troponin I < 0.020 (0.0-0.045) ng/mL Liver Function 06/20/25 Range/Units 02:02 Total Bilirubin 0.7 (0.3-1.2) mg/dL AST 65 H (0-34) U/L ALT 51 H (10-49) U/L Alkaline Phosphatase 100 (46-116) U/L Albumin 5.4 H (3.5-5.0) gm/dL ABG Interpretation ABG results: 06/20/25 05:30 VBG pH 7.22 L VBG pCO2 46 VBG pO2 29 VBG Base Excess -9 L Quality Measures Quality Measures VTE prophylaxis Medications Home Medications and Allergies Home Medications ?Medication ?Instructions ?Recorded ?Confirmed ?Type divalproex 500 mg tablet,extended 1,500 mg PO HS 06/20/25 06/20/25 History release 24 hr (Depakote ER) quetiapine 400 mg tablet,extended 400 mg PO HS 06/20/25 06/20/25 History release 24 hr (Seroquel XR) Allergies Allergy/AdvReac Type Severity Reaction Status Date / Time No Known Allergies Allergy Verified 02/06/25 13:24 Visit Medications Acetaminophen (Acetaminophen 325 Mg Tablet) 650 mg PO Q6H PRN PRN Reason: PAIN OR FEVER > 101 Stop: 07/20/25 06:12 Dextrose (Dextrose 50%-Water Inj 50 Ml Syringe) 25 ml IV PRNMRX1 PRN PRN Reason: Blood Sugar - Low Potassium Chloride 20 meq/ (Dextrose/Lactated Ringer's) 1,010 mls @ 250 mls/hr IV .Q4H3M PRN PRN Reason: K LEVEL 3.3 TO 5.3 mM/L Stop: 07/20/25 06:07 Potassium Chloride 40 meq/ (Dextrose/Lactated Ringer's) 1,020 mls @ 250 mls/hr IV .Q4H5M PRN PRN Reason: K LEVEL < 3.3mM/L Stop: 07/20/25 06:07 Potassium Chloride (Kcl Ivpb) 10 meq in 100 mls @ 100 mls/hr IV .Q1H PRN PRN Reason: IF POTASSIUM LESS THAN 3.3 Stop: 07/20/25 06:07 Magnesium Sulfate (Magnesium Sulfate Ivpb) 2 gm in 50 mls @ 25 mls/hr IV .Q2H PRN PRN Reason: PER DKA PROTOCOL Stop: 07/20/25 06:07 Insulin Human Regular 100 unit (/ IV Miscellaneous Supplies) 100 mls @ 10.569 mls/hr IV .Q9H28M PRN; Protocol PRN Reason: PER PROTOCOL Stop: 07/20/25 06:07 Dextrose/Lactated Ringer's (D5-Lr) 1,000 mls @ 250 mls/hr IV .Q4H PRN PRN Reason: PER PROTOCOL Stop: 07/20/25 06:07 Lactated Ringer's (Lactated Ringers) 1,000 mls @ 250 mls/hr IV .Q4H PRN PRN Reason: PER PROTOCOL Stop: 06/21/25 06:07 Potassium Chloride 20 meq/ (Lactated Ringer's) 1,010 mls @ 250 mls/hr IV .Q4H3M PRN PRN Reason: K LEVEL 3.3 TO 5.3mM/L Stop: 07/20/25 06:07 Potassium Chloride 40 meq/ (Lactated Ringer's) 1,020 mls @ 250 mls/hr IV .Q4H5M PRN PRN Reason: K LEVEL < 3.3 mM/L Stop: 07/20/25 06:07 Potassium Chloride (Kcl Ivpb) 10 meq in 100 mls @ 50 mls/hr IV PRN PRN PRN Reason: K LEVEL 3.3 to 5.3 & BG > 200 Stop: 07/20/25 06:07 Potassium Phosphate (Pot Phos 15 Mmol In Ns 250 Ml) 15 mmol in 250 mls @ 62.5 mls/hr IV PRN PRN PRN Reason: Phosphate <= 1mg/dL Stop: 07/20/25 06:07 Sodium Phosphate 15 mmol/ (Sodium Chloride) 255 mls @ 62.5 mls/hr IV .Q4H5M PRN PRN Reason: Phosphate <= 1mg/dL and K> than 5.3 Stop: 07/20/25 06:07 Ondansetron HCl (Ondansetron Inj 2 Mg/Ml Inj 2 Ml) 4 mg IV Q6H PRN; Protocol PRN Reason: NAUSEA OR VOMITING Stop: 07/20/25 06:12 Pantoprazole Sodium (Pantoprazole Inj 40 Mg Vial) 40 mg IVP BID BELKYS Stop: 07/20/25 08:59 Sodium Bicarbonate (Sodium Bicarb Inj 8.4% Syr 50 Ml Syringe) 50 ml IV Q4HR PRN PRN Reason: For ph <= to 7.0 Stop: 07/20/25 06:07 Discontinued Medications Sodium Chloride (Ns) 1,000 mls @ 999 mls/hr IV .Q1H1M ONE Stop: 06/20/25 02:43 Last Infusion: 06/20/25 04:14 Dose: Infused Lactated Ringer's (Lactated Ringers) 1,000 mls @ 999 mls/hr IV .Q1H1M ONE Stop: 06/20/25 06:11 Last Admin: 06/20/25 05:24 Dose: 999 mls/hr Lactated Ringer's (Lactated Ringers) 1,000 mls @ 999 mls/hr IV .Q1H1M ONE Stop: 06/20/25 06:16 Last Admin: 06/20/25 05:24 Dose: 999 mls/hr Insulin Human Regular (Insulin Hum Regular 1 Unit/0.01 Ml (Per Unit)) 10.6 unit 0.1 unit/kg (10.6 unit) IV X1 ONE Stop: 06/20/25 06:09 Metoclopramide HCl (Metoclopramide Inj 5 Mg/Ml Vial 2 Ml) 10 mg IVP X1 ONE; Protocol Stop: 06/20/25 03:48 Last Admin: 06/20/25 04:12 Dose: 10 mg Ondansetron HCl (Ondansetron Inj 2 Mg/Ml Inj 2 Ml) 4 mg IVP X1 ONE; Protocol Stop: 06/20/25 01:44 Last Admin: 06/20/25 03:11 Dose: 4 mg Pantoprazole Sodium (Pantoprazole Inj 40 Mg Vial) 40 mg IVP X1 ONE Stop: 06/20/25 01:44 Last Admin: 06/20/25 03:10 Dose: 40 mg Assessment & Plan Plan The patient is a 30-year-old male with a past medical history of Schizoaffective disorder, substance abuse disorder, suicidal ideation, diabetes mellitus, who came to the ER complaining of nausea vomiting, pain in his throat and cough. Patient also reported 1 episode of blood-tinged vomitus. Patient is admitted for management of diabetic ketoacidosis, upper GI bleed. 1.NEURO: #History of schizoaffective disorder Home medications include Seroquel and divalproex. Follow Depakote levels. Resume home medication after med rec reconciled 2.CVS: #Sinus tachycardia Likely secondary to dehydration in the setting of DKA and hematemesis. #Hypertension Patient reported no past medical history of hypertension, blood pressure persistently elevated more than 140, continue to monitor, if no further GI bleed or hypotension, might benefit from antihypertensive on discharge. 3.PULM: #Pneumonia? Subjective complaint of fever, afebrile on initial vitals, also complaining of cough productive of sputum. ? IV ceftriaxone 1 g daily ? Follow sputum and blood cultures 4.GI: #Nausea and vomiting #Hematemesis Patient reported single episode of hematemesis, reported nausea and vomiting for the past few days, also reported burning epigastric pain, possible differentials include esophagitis, Vida-Haynes tear, peptic ulcer disease. Patient has no history of cirrhosis, less likely variceal bleed. ? Protonix 40 mg twice daily ? IV fluid bolus given in ED, continue IV fluids per DKA protocol ? Stool occult blood ordered ? GI consult ordered 5.Renal: #MJ MJ likely prerenal in the setting of DKA and hypovolemia. Continue IV fluids, follow repeat renal panel. ? Follow-up ultrasound renal bilateral ? Monitor urine output and avoid nephrotoxic drugs #High anion gap metabolic acidosis Likely in the setting of DKA, lactic acid within normal limits, management per DKA protocol expect improvement following IV fluid resuscitation and insulin 6.ENDOCRINE: #Diabetic ketoacidosis Patient has documented history of diabetes mellitus but apparently has recollection of when he was diagnosed, reported he is not taking any medications at home for diabetes mellitus. High anion gap metabolic acidosis, positive BHB. ? Insulin gtt. ? IV fluids ? Hypoglycemic protocol in place ? Currently n.p.o. initiate diet once patient able to tolerate 7.Infectious: #Possible pneumonia Started on IV antibiotics, follow sputum and blood cultures. 8.Heme: #leukocytosis #Polycythemia Disposition: ICU DVT prophylaxis: SCDs GI prophylaxis: Protonix twice daily Diet: N.p.o. Lines: PIV CODE STATUS: Full Patient case discussed with attending Dr. Qamar Olson PGY 3 Attending Provider Attestation/Addendum After examining patient and review of the clinical data patient was found to have high probability of imminent deterioration which required my direct management and intervention TOTAL CC TIME: 45 MIN TOTAL TIME: 45 Minutes of direct medical management and planning of care for DKA. I Lakeisha Foote MD, attest that I was physically present for caicedo portions of evaluation, and examined patient, labs and imagings and plan of care were discussed with IM residents team, and I agree with the findings and plans documented above.
[2025-06-20] MEDS: INSULIN REG 100 UNITS/100 ML 100 UNIT in PRE-MIXED 1 BAG 10.569 UNIT IV (06:32)
[2025-06-20] MEDS: cefTRIAXone/D5w 1gm IV premix 1 GM/50 ML BAG IV ×2 (06:32→09:13)
[2025-06-20 07:08] LABS: Phosphorous 3.4 mg/dL (2.4-5.1)
--- NOTE | 2025-06-20 07:09 | XR_ITS ---
Examination: Retroperitoneal ultrasound, complete Technique: Multiple high resolution grayscale images of the retroperitoneum obtained, including kidneys and bladder. Exam date and time: June 20, 2025, 0849 hours INDICATIONS: Acute renal insufficiency on laboratory examination today FINDINGS: Right kidney 11.4 cm renal cortex 2.8 cm 5 mm mid pole calculus Left kidney 12.0 cm renal cortex 2.3 cm Mild renal scar formation No hydronephrosis Bladder prevoid volume 284 cc unable to void No prostatomegaly IMPRESSION: 5 mm mid pole nonobstructing right renal calculus No hydronephrosis
[2025-06-20 07:57] LABS: INR 1.0 (0.9-1.3); Prothrombin Time 10.4 Seconds (9.0-12.2)
[2025-06-20] MEDS: POT CHL ADDITIVE 20 MEQ in RINGERS LACTATED 1000 ML 1,000 ML 250 MEQ IV (08:03)
[2025-06-20 08:15] LABS: Cardiac Risk Estimate 27.3 RATIO (4.0-6.7); Cholesterol 410 mg/dL (132-200); Glucose Estimated Average 355 mg/dL (80-131); HDL Cholesterol 15 mg/dL (40-60); Hemoglobin A1C > 14.0 % Hgb (4.8-6.0); Triglycerides 2125 mg/dL (30-150)
[2025-06-20 08:20] LABS: Collection Type, Urine Clean Catch; Squamous Epithelial Cell,Urine 0 /hpf (0-5)
[2025-06-20 08:39] LABS: Amphetamine/Methamp Scrn,U Positive (Negative); Barbiturate Screen,Urine Negative (Negative); Benzodiazepines Screen,Urine Negative (Negative); Benzoylecgonine Screen, Ur Negative (Negative); Fentanyl Screen,Urine Negative (Negative); Opiate Screen,Urine Negative (Negative); THC Screen,Urine Positive (Negative)
[2025-06-20 08:39] LABS: Bilirubin,Urine Negative (Negative); Blood,Urine Trace (Negative); Clarity,Urine Clear (Clear/Hazy); Color,Urine Lt-Yellow (Lt Yel-Yel); Glucose, Urine 4+ (Negative); Ketones,Urine 4+ (Negative); Leukocyte Esterase,Urine Negative (Negative); Nitrite,Urine Negative (Negative); PH,Urine 5.5 (5.0-7.0); Protein,Urine 1+ (Neg - Trace); RBC,Urine 4 /hpf (0-3); Specific Gravity,Urine 1.033 (1.001-1.035); Urobilinogen,Urine Negative mg/dL (0.0-1.0); WBC,Urine < 1 /hpf (0-5)
[2025-06-20] MEDS: POT CHL ADDITIVE 20 MEQ in DEXTROSE 5%-LACTATED RINGERS 1,000 ML 250 MEQ IV ×4 (09:16→23:51)
[2025-06-20 09:25] LABS: COVID-19 Antigen (In-House) Negative (Negative)
[2025-06-20 10:15] LABS: Lactate (Lactic Acid) 1.1 mMol/L (0.4-2.0)
--- NOTE | 2025-06-20 10:16 | PC.NURSE ---
Dr. Mclaughlin called regarding patient c/o pain to throat, states its int he center, feels like something is dripping down his throat, Md to come to ER and evaluate patient
[2025-06-20 10:17] LABS: Basophils % (Auto) 0 % (0-2.5); Eosinophils % (Auto) 0 % (0-10); Nucleated Red Blood Cell # 0.00 Thou/mm3 (0.00-0.00); Nucleated Red Blood Cell % 0 /100 WBC (0); Red Blood Count 4.99 Miln/mm3 (4.50-5.90)
--- NOTE | 2025-06-20 10:28 | PC.NURSE ---
recieved a call from lab patient labs draw have been lypemic , milky , lab may need to redraw labs frequently to make shure the lab is correct
[2025-06-20] MEDS: MORPHINE SULF INJ 4 MG/ML VIAL 0.5 MG IVP (10:30)
[2025-06-20 10:36] LABS: Basophils # (Auto) 0.1 Thou/mm3 (0.0-0.2); Eosinophils # (Auto) 0.0 Thou/mm3 (0.0-0.5); Hematocrit 42.2 % (41.0-53.0); Hemoglobin 15.8 g/dL (13.5-16.0); Immature Granulocytes Auto 0.14 Thou/mm3 (0.00-0.00); Lymphocytes # (Auto) 1.6 Thou/mm3 (1.0-4.8); Lymphocytes % (Auto) 7 % (10-50); Mean Corpuscular HGB Conc 37.4 g/dl (31.0-37.0); Mean Corpuscular Hemoglobin 31.7 pg (25.0-35.0); Mean Corpuscular Volume 85 fL (80-100); Monocytes # (Auto) 4.2 Thou/mm3 (0.0-0.8); Monocytes % (Auto) 18 % (0-12); Neutrophils # (Auto) 18.0 Thou/mm3 (1.8-7.7); Neutrophils % (Auto) 75 % (37-80); Platelet Count 177 Thou/mm3 (140-440); RDW Standard Deviation 39.3 fL (35.1-43.9); White Blood Count 23.9 Thou/mm3 (3.8-10.6)
--- NOTE | 2025-06-20 10:42 | PD.RESHP ---
Documentation for date of: 06/20/25 Exam Vital Signs Temp Pulse Resp BP Pulse Ox O2 Del Method 98.4 F 118 H 18 142/99 H 95 Room Air 06/20/25 09:41 06/20/25 10:18 06/20/25 10:18 06/20/25 10:18 06/20/25 10:18 06/20/25 10:18 Results: Labs 06/20/25 10:03 06/20/25 02:02 Labs: Short CBC 06/20/25 06/20/25 Range/Units 02:02 10:03 WBC 17.4 H 23.9 H D (3.8-10.6) Thou/mm3 Hgb 18.8 H* 15.8 D (13.5-16.0) g/dL Hct 50.8 42.2 (41.0-53.0) % Plt Count 244 177 D (140-440) Thou/mm3 BMP 06/20/25 02:02 Sodium 132 L Potassium 4.4 Chloride 96 L Carbon Dioxide 13.6 L* BUN 12 Creatinine 1.5 H Glucose 374 H Calcium 9.5 Cardiac Enzymes 06/20/25 Range/Units 02:02 Troponin I < 0.020 (0.0-0.045) ng/mL Liver Function 06/20/25 Range/Units 02:02 Total Bilirubin 0.7 (0.3-1.2) mg/dL AST 65 H (0-34) U/L ALT 51 H (10-49) U/L Alkaline Phosphatase 100 (46-116) U/L Albumin 5.4 H (3.5-5.0) gm/dL Urine 06/20/25 Range/Units 07:50 Urine Color Lt-Yellow (Lt Yel-Yel) Urine Clarity Clear (Clear/Hazy) Urine pH 5.5 (5.0-7.0) Ur Specific [place] 1.033 (1.001-1.035) Urine Protein 1+ A (Neg - Trace) Urine Glucose (UA) 4+ A (Negative) ABG Interpretation ABG results: 06/20/25 05:30 VBG pH 7.22 L VBG pCO2 46 VBG pO2 29 VBG Base Excess -9 L Quality Measures Quality Measures none Medications Home Medications and Allergies Allergies Allergy/AdvReac Type Severity Reaction Status Date / Time No Known Allergies Allergy Verified 02/06/25 13:24 Visit Medications Acetaminophen (Acetaminophen 325 Mg Tablet) 650 mg PO Q6H PRN PRN Reason: PAIN 1- 10 OR FEVER > 101 Stop: 07/20/25 06:12 Dextrose (Dextrose 50%-Water Inj 50 Ml Syringe) 25 ml IV PRNMRX1 PRN PRN Reason: Blood Sugar - Low Potassium Chloride 20 meq/ (Dextrose/Lactated Ringer's) 1,010 mls @ 250 mls/hr IV .Q4H3M PRN PRN Reason: K LEVEL 3.3 TO 5.3 mM/L Stop: 07/20/25 06:07 Last Admin: 06/20/25 09:16 Dose: 250 mls/hr Potassium Chloride 40 meq/ (Dextrose/Lactated Ringer's) 1,020 mls @ 250 mls/hr IV .Q4H5M PRN PRN Reason: K LEVEL < 3.3mM/L Stop: 07/20/25 06:07 Potassium Chloride (Kcl Ivpb) 10 meq in 100 mls @ 100 mls/hr IV .Q1H PRN PRN Reason: IF POTASSIUM LESS THAN 3.3 Stop: 07/20/25 06:07 Magnesium Sulfate (Magnesium Sulfate Ivpb) 2 gm in 50 mls @ 25 mls/hr IV .Q2H PRN PRN Reason: PER DKA PROTOCOL Stop: 07/20/25 06:07 Insulin Human Regular 100 unit (/ IV Miscellaneous Supplies) 100 mls @ 10.569 mls/hr IV .Q9H28M PRN; Protocol PRN Reason: PER PROTOCOL Stop: 07/20/25 06:07 Last Titration: 06/20/25 10:00 Dose: 0.04 unit/kg/hr, 4.16 mls/hr Dextrose/Lactated Ringer's (D5-Lr) 1,000 mls @ 250 mls/hr IV .Q4H PRN PRN Reason: PER PROTOCOL Stop: 07/20/25 06:07 Lactated Ringer's (Lactated Ringers) 1,000 mls @ 250 mls/hr IV .Q4H PRN PRN Reason: PER PROTOCOL Stop: 06/21/25 06:07 Potassium Chloride 20 meq/ (Lactated Ringer's) 1,010 mls @ 250 mls/hr IV .Q4H3M PRN PRN Reason: K LEVEL 3.3 TO 5.3mM/L Stop: 07/20/25 06:07 Last Admin: 06/20/25 08:03 Dose: 250 mls/hr Potassium Chloride 40 meq/ (Lactated Ringer's) 1,020 mls @ 250 mls/hr IV .Q4H5M PRN PRN Reason: K LEVEL < 3.3 mM/L Stop: 07/20/25 06:07 Potassium Chloride (Kcl Ivpb) 10 meq in 100 mls @ 50 mls/hr IV PRN PRN PRN Reason: K LEVEL 3.3 to 5.3 & BG > 200 Stop: 07/20/25 06:07 Potassium Phosphate (Pot Phos 15 Mmol In Ns 250 Ml) 15 mmol in 250 mls @ 62.5 mls/hr IV PRN PRN PRN Reason: Phosphate <= 1mg/dL Stop: 07/20/25 06:07 Sodium Phosphate 15 mmol/ (Sodium Chloride) 255 mls @ 62.5 mls/hr IV .Q4H5M PRN PRN Reason: Phosphate <= 1mg/dL and K> than 5.3 Stop: 07/20/25 06:07 Ondansetron HCl (Ondansetron Inj 2 Mg/Ml Inj 2 Ml) 4 mg IV Q6H PRN; Protocol PRN Reason: NAUSEA OR VOMITING Stop: 07/20/25 06:12 Pantoprazole Sodium (Pantoprazole Inj 40 Mg Vial) 40 mg IVP BID BELKYS Stop: 07/20/25 08:59 Last Admin: 06/20/25 09:09 Dose: 40 mg Sodium Bicarbonate (Sodium Bicarb Inj 8.4% Syr 50 Ml Syringe) 50 ml IV Q4HR PRN PRN Reason: For ph <= to 7.0 Stop: 07/20/25 06:07 Discontinued Medications Sodium Chloride (Ns) 1,000 mls @ 999 mls/hr IV .Q1H1M ONE Stop: 06/20/25 02:43 Last Infusion: 06/20/25 04:14 Dose: Infused Lactated Ringer's (Lactated Ringers) 1,000 mls @ 999 mls/hr IV .Q1H1M ONE Stop: 06/20/25 06:11 Last Infusion: 06/20/25 06:49 Dose: Infused Lactated Ringer's (Lactated Ringers) 1,000 mls @ 999 mls/hr IV .Q1H1M ONE Stop: 06/20/25 06:16 Last Infusion: 06/20/25 06:49 Dose: Infused Ceftriaxone Sodium/Dextrose (Rocephin/D5w 1gm Iv Premix) 1 gm in 50 mls @ 100 mls/hr IV QDAY BELKYS Stop: 06/27/25 06:27 Last Infusion: 06/20/25 10:13 Dose: Infused Ibuprofen (Ibuprofen Tab 400 Mg Tablet) 600 mg PO X1 ONE Stop: 06/20/25 10:37 Insulin Human Regular (Insulin Hum Regular 1 Unit/0.01 Ml (Per Unit)) 10.6 unit 0.1 unit/kg (10.6 unit) IV X1 ONE Stop: 06/20/25 06:09 Last Admin: 06/20/25 06:32 Dose: Not Given Metoclopramide HCl (Metoclopramide Inj 5 Mg/Ml Vial 2 Ml) 10 mg IVP X1 ONE; Protocol Stop: 06/20/25 03:48 Last Admin: 06/20/25 04:12 Dose: 10 mg Morphine Sulfate (Morphine Sulf Inj 4 Mg/Ml Vial) 0.5 mg IVP X1 ONE Stop: 06/20/25 10:25 Last Admin: 06/20/25 10:30 Dose: 0.5 mg Ondansetron HCl (Ondansetron Inj 2 Mg/Ml Inj 2 Ml) 4 mg IVP X1 ONE; Protocol Stop: 06/20/25 01:44 Last Admin: 06/20/25 03:11 Dose: 4 mg Pantoprazole Sodium (Pantoprazole Inj 40 Mg Vial) 40 mg IVP X1 ONE Stop: 06/20/25 01:44 Last Admin: 06/20/25 03:10 Dose: 40 mg Sodium Chloride (Sodium Chloride Rt 10% 15 Ml Nebu) 5 ml INH X1 ONE Stop: 06/20/25 06:26 Last Admin: 06/20/25 08:58 Dose: Not Given
[2025-06-20] MEDS: IBUPROFEN TAB 400 MG TABLET 600 MG PO (10:45)
--- NOTE | 2025-06-20 11:03 | ESPR_ITS ---
<Statement entered by Hugo Stewart MD - 06/20/25 19:53> I have reviewed the note and agree with the resident's assessment & plan with exceptions as below. I have personally reviewed labs, imaging, home meds/prior records, examined the patient, formulated and discussed management plan with my attending. Patient was seen and examined at bedside this AM. No acute overnight events. Patient on insulin drip for DKA, AG has still not closed and HAGMA has not improved, could be a component of DKA and RTA, will get urine electrolytes to assess for RTA and consider bicitra if urine electrolytes concerning for RTA. Patient also found to have tonsillitis with Strep A negative, therefore started on Augementin BID and NSAIDs for inflammation. Patient will likley be downgraded in the next 24-48 hrs once transitioned to SC insulin after AG closed x2. Will monitor for worsening swelling of tonsils, but for now no issues with breathing and no change in size. Consider decradon for inflammation if worsening. Hugo Stewart PGY2 Disclaimer: Even though this this note was dictated by speech recognition and even though it was carefully revised there may still be minor errors in cable coverer due to voice recognition software. Documentation for date of: 06/20/25 Subjective Subjective Interval history: The patient is a 30-year-old male with a past medical history of schizophrenia, bipolary type I disorder, substance abuse disorder, suicidal ideation, diabetes mellitus, who came to the ER complaining of nausea vomiting, pain in his throat and cough. Patient also reported 1 episode of blood-tinged vomitus. Patient denied any melena or hematochezia. Endorsed abdominal pain and burning sensation in his throat and epigastrium. Endorsed subjective complaint of fever and productive cough. Per patient, he is not aware of diagnosis of diabetes mellitus, and is taking no medications for it. Patient denied chest pain, seizures, loss of consciousness. Denied suicidal ideation. Denied diarrhea, constipation. In the ED, noted blood pressure 160/95, heart rate 120/min, afebrile. EKG showed sinus tachycardia heart rate 132, noted T inversions in 1 aVL which are consistent with prior EKG, no new acute ischemic changes noted, troponin is not within normal limits, noted leukocytosis and polycythemia on CBC, CMP remarkable for high anion gap metabolic acidosis and elevated blood glucose, lactic acid within normal limits, chest x-ray was ordered pending radiologist read, urinalysis ordered pending. Patient admitted for management of DKA and GI bleed. PMH: Schizoaffective disorder, substance abuse disorder, suicidal ideation, diabetes mellitus Past Surgical Hx: No pertinent surgical history reported Family Hx: Family history of diabetes mellitus Social Hx: Patient was released from incarceration few months ago, currently lives with family, endorses methamphetamine abuse, last intake 2 days ago, endorses cigarette smoking, denies marijuana, cocaine or alcohol use. Interval History: 06/20/2025 Patient was admitted overnight. Patient seen and examined at bedside. The patient appeared to be annoyed and was complaining of throat pain. The patient noted that he has had about 2 days of nausea and vomiting, with 3-4 episodes of vomiting, but those episodes last a long time per the patient. Patient has significant improvement of his pain with combination of Chloraseptic mouth spray and small dose of morphine. The back of the patient's throat was examined and show what seems to be white draining pus, suggesting a pharyngitis/tonsillitis, so antibiotics were broadened to amoxicillin/clavulanate, which was initially PO tabs that was changed to liquid solution due to patient's pain with oral intake. Will add as needed Toradol and ibuprofen in addition to as needed Chloraseptic mouth spray. Also ordered urine electrolytes as delta delta ratio on admission noted to be 0.7 when corrected for albumin, suggesting an active anion gap and a nonanion gap, so your electrolytes will aid in identification of the non-anion gap. Exam Vital Signs Temp Pulse Resp BP Pulse Ox O2 Del Method 98.4 F 118 H 18 142/99 H 95 Room Air 06/20/25 09:41 06/20/25 10:18 06/20/25 10:18 06/20/25 10:18 06/20/25 10:18 06/20/25 10:18 Narrative Exam Physical Exam: General: Alert, no acute distress. Annoyed. Skin: Warm, dry, intact. Head: Normocephalic, atraumatic. Eye: Normal conjunctiva, PERRL. Throat: Oral mucosa moist. White draining material noted in posterior oral cavity, behind the patient's tonsils, R > L. Uvula deviated slightly towards the left. Cardiovascular: Tachycardic rate and regular rhythm, no murmur, +S1/S2. Respiratory: Lungs are clear to auscultation, respirations unlabored, no crackles, no wheezing. Gastrointestinal: Soft, nontender, non-distended. No guarding or rebound tenderness. Extremities: No edema, no cyanosis, no clubbing. 2+ radial pulse bilaterally, 2+ pedal pulse bilaterally. Neuro: No focal deficits observed. Conversant, moving all extremities. No overt cerebellar signs/incoordination. Psychiatric: Cooperative, appropriate affect. Objective Labs 06/20/25 10:03 06/20/25 14:04 Labs: Laboratory Results - last 24 hr 06/20/25 06/20/25 06/20/25 02:02 05:30 07:05 WBC 17.4 H RBC 6.01 H Hgb 18.8 H* Hct 50.8 MCV 85 MCH 31.3 MCHC 37.0 RDW Std Deviation 38.7 Plt Count 244 Neut % (Auto) 72 Lymph % (Auto) 14 [place] % (Auto) 13 H Eos % (Auto) 0 Baso % (Auto) 1 Neut # (Auto) 12.5 H Lymph # (Auto) 2.4 [place] # (Auto) 2.2 H Eos # (Auto) 0.0 Baso # (Auto) 0.1 Immature Gran # (Auto) 0.11 H Absolute Nucleated RBC 0.00 Immature Gran % 1 H Nucleated RBC % 0 PT 10.4 INR 1.0 VBG pH 7.22 L VBG pCO2 46 VBG pO2 29 VBG O2 Sat (Princess) 53 L VBG Base Excess -9 L Sodium 132 L Potassium 4.4 Chloride 96 L Carbon Dioxide 13.6 L* Anion Gap 22 H BUN 12 Creatinine 1.5 H Estim Creat Clear Calc 86.1 eGFR > 60 BUN/Creatinine Ratio 8 L Glucose [address] Glu mg/dL 355 H Hemoglobin A1c > 14.0 H Calculated Osmolality 279 Lactic Acid 1.8 Calcium 9.5 Corrected Calcium 9.5 Phosphorus 3.4 Magnesium 2.0 Total Bilirubin 0.7 AST 65 H ALT 51 H Alkaline Phosphatase 100 Troponin I < 0.020 Total Protein 8.8 H Albumin 5.4 H Globulin 3.4 Albumin/Globulin Ratio 1.6 Triglycerides 2125 H Cholesterol 410 H LDL Cholesterol, Calc TNP HDL Cholesterol 15 L Cholesterol/HDL Ratio 27.3 H Lipase 25 Beta-Hydroxybutyrate/Acetoacetate 5.0 H Procalcitonin 0.10 Ur Collection Type Urine Color Urine Clarity Urine pH Ur Specific [place] Urine Protein Urine Glucose (UA) Urine Ketones Urine Blood Urine Nitrite Urine Bilirubin Urine Urobilinogen (Auto) Ur Leukocyte Esterase Urine RBC Urine WBC Ur Squamous Epith Cells Urine Bacteria Urine Opiates Screen Urine Fentanyl Screen Ur Barbiturates Screen U Amphetamin/Meth Scrn U Benzodiazepines Scrn U Cocaine Metab Screen U Marijuana (THC) Screen Ethyl Alcohol < 3.0 SARS-CoV-2 Ag (Rapid) 06/20/25 06/20/25 06/20/25 07:44 07:50 08:57 WBC RBC Hgb Hct MCV MCH MCHC RDW Std Deviation Plt Count Neut % (Auto) Lymph % (Auto) [place] % (Auto) Eos % (Auto) Baso % (Auto) Neut # (Auto) Lymph # (Auto) [place] # (Auto) Eos # (Auto) Baso # (Auto) Immature Gran # (Auto) Absolute Nucleated RBC Immature Gran % Nucleated RBC % PT INR VBG pH VBG pCO2 VBG pO2 VBG O2 Sat (Princess) VBG Base Excess Sodium Potassium Chloride Carbon Dioxide Anion Gap BUN Creatinine Estim Creat Clear Calc eGFR BUN/Creatinine Ratio Glucose Estimated Ave Glu mg/dL Hemoglobin A1c Calculated Osmolality Lactic Acid Calcium Corrected Calcium Phosphorus Magnesium Total Bilirubin AST ALT Alkaline Phosphatase Troponin I Total Protein Albumin Globulin Albumin/Globulin Ratio Triglycerides Cholesterol LDL Cholesterol, Calc HDL Cholesterol Cholesterol/HDL Ratio Lipase Beta-Hydroxybutyrate/Acetoacetate Procalcitonin Ur Collection Type Clean Catch Urine Color Lt-Yellow Urine Clarity Clear Urine pH 5.5 Ur Specific [place] 1.033 Urine Protein 1+ A Urine Glucose (UA) 4+ A Urine Ketones 4+ A Urine Blood Trace Urine Nitrite Negative Urine Bilirubin Negative Urine Urobilinogen (Auto) Negative Ur Leukocyte Esterase Negative Urine RBC 4 H Urine WBC < 1 Ur Squamous Epith Cells 0 Urine Bacteria None Urine Opiates Screen Negative Urine Fentanyl Screen Negative Ur Barbiturates Screen Negative U Amphetamin/Meth Scrn Positive A U Benzodiazepines Scrn Negative U Cocaine Metab Screen Negative U Marijuana (THC) Screen Positive A Ethyl Alcohol SARS-CoV-2 Ag (Rapid) Negative 06/20/25 10:03 WBC 23.9 H D RBC 4.99 Hgb 15.8 D Hct 42.2 MCV 85 MCH 31.7 MCHC 37.4 H RDW Std Deviation 39.3 Plt Count 177 D Neut % (Auto) 75 Lymph % (Auto) 7 L [place] % (Auto) 18 H Eos % (Auto) 0 Baso % (Auto) 0 Neut # (Auto) 18.0 H Lymph # (Auto) 1.6 [place] # (Auto) 4.2 H Eos # (Auto) 0.0 Baso # (Auto) 0.1 Immature Gran # (Auto) 0.14 H Absolute Nucleated RBC 0.00 Immature Gran % 1 H Nucleated RBC % 0 PT INR VBG pH VBG pCO2 VBG pO2 VBG O2 Sat (Princess) VBG Base Excess Sodium Potassium Chloride Carbon Dioxide Anion Gap BUN Creatinine Estim Creat Clear Calc eGFR BUN/Creatinine Ratio Glucose Estimated Ave Glu mg/dL Hemoglobin A1c Calculated Osmolality Lactic Acid 1.1 Calcium Corrected Calcium Phosphorus Magnesium Total Bilirubin AST ALT Alkaline Phosphatase Troponin I Total Protein Albumin Globulin Albumin/Globulin Ratio Triglycerides Cholesterol LDL Cholesterol, Calc HDL Cholesterol Cholesterol/HDL Ratio Lipase Beta-Hydroxybutyrate/Acetoacetate Procalcitonin Ur Collection Type Urine Color Urine Clarity Urine pH Ur Specific [place] Urine Protein Urine Glucose (UA) Urine Ketones Urine Blood Urine Nitrite Urine Bilirubin Urine Urobilinogen (Auto) Ur Leukocyte Esterase Urine RBC Urine WBC Ur Squamous Epith Cells Urine Bacteria Urine Opiates Screen Urine Fentanyl Screen Ur Barbiturates Screen U Amphetamin/Meth Scrn U Benzodiazepines Scrn U Cocaine Metab Screen U Marijuana (THC) Screen Ethyl Alcohol SARS-CoV-2 Ag (Rapid) ABG Interpretation ABG results: 06/20/25 05:30 VBG pH 7.22 L VBG pCO2 46 VBG pO2 29 VBG Base Excess -9 L Quality Measures Quality Measures VTE prophylaxis Assessment & Plan Assessment Current Active Medications: Generic Name Dose Route Start Last Admin Trade Name Freq PRN Reason Stop Dose Admin Acetaminophen 325 mg 06/20/25 10:45 Acetaminophen 325 Mg Tablet PO 07/20/25 10:44 Q6HR PRN Fever > 100.4 Acetaminophen 650 mg 06/20/25 10:48 Acetaminophen 325 Mg Tablet PO 07/20/25 06:12 Q6H PRN PAIN 1- 3 Amoxicillin/Clavulanate Potassium 1 tab 06/20/25 10:45 Amoxicillin/Pot Clav 875 Tablet PO 06/27/25 10:44 BID BELKYS Dextrose 25 ml 06/20/25 06:08 Dextrose 50%-Water Inj 50 Ml Syringe IV [id number] PRN Blood Sugar - Low Potassium Chloride 20 meq/ 1,010 mls @ 250 mls/hr 06/20/25 06:08 06/20/25 09:16 Dextrose/Lactated Ringer's IV 07/20/25 06:07 250 mls/hr .Q4H3M PRN Administration K LEVEL 3.3 TO 5.3 mM/L Potassium Chloride 40 meq/ 1,020 mls @ 250 mls/hr 06/20/25 06:08 Dextrose/Lactated Ringer's IV 07/20/25 06:07 .Q4H5M PRN K LEVEL < 3.3mM/L Potassium Chloride 10 meq in 100 mls @ 100 mls/hr 06/20/25 06:08 Kcl Ivpb IV 07/20/25 06:07 .Q1H PRN IF POTASSIUM LESS THAN 3.3 Magnesium Sulfate 2 gm in 50 mls @ 25 mls/hr 06/20/25 06:08 Magnesium Sulfate Ivpb IV 07/20/25 06:07 .Q2H PRN PER DKA PROTOCOL Insulin Human Regular 100 unit 100 mls @ 10.569 mls/hr 06/20/25 06:08 06/20/25 10:00 / IV Miscellaneous Supplies IV 07/20/25 06:07 0.04 unit/kg/hr .Q9H28M PRN 4.16 mls/hr PER PROTOCOL Titration Protocol 0.1 UNIT/KG/HR Dextrose/Lactated Ringer's 1,000 mls @ 250 mls/hr 06/20/25 06:08 D5-Lr IV 07/20/25 06:07 .Q4H PRN PER PROTOCOL Lactated Ringer's 1,000 mls @ 250 mls/hr 06/20/25 06:08 Lactated Ringers IV 06/21/25 06:07 .Q4H PRN PER PROTOCOL Potassium Chloride 20 meq/ 1,010 mls @ 250 mls/hr 06/20/25 06:08 06/20/25 08:03 Lactated Ringer's IV 07/20/25 06:07 250 mls/hr .Q4H3M PRN Administration K LEVEL 3.3 TO 5.3mM/L Potassium Chloride 40 meq/ 1,020 mls @ 250 mls/hr 06/20/25 06:08 Lactated Ringer's IV 07/20/25 06:07 .Q4H5M PRN K LEVEL < 3.3 mM/L Potassium Chloride 10 meq in 100 mls @ 50 mls/hr 06/20/25 06:08 Kcl Ivpb IV 07/20/25 06:07 PRN PRN K LEVEL 3.3 to 5.3 & BG > 200 Potassium Phosphate 15 mmol in 250 mls @ 62.5 mls/hr 06/20/25 06:08 Pot Phos 15 Mmol In Ns 250 Ml IV 07/20/25 06:07 PRN PRN Phosphate <= 1mg/dL Sodium Phosphate 15 mmol/ 255 mls @ 62.5 mls/hr 06/20/25 06:08 Sodium Chloride IV 07/20/25 06:07 .Q4H5M PRN Phosphate <= 1mg/dL and K> than 5.3 Ibuprofen 600 mg 06/20/25 10:44 Ibuprofen Tab 600 Mg Tablet PO 07/20/25 10:43 Q8HR PRN PAIN 1-3 OR FEVER > 101 Ketorolac Tromethamine 30 mg 06/20/25 10:44 Ketorolac Inj 30 Mg/Ml Vial IVP 06/25/25 10:43 Q6HR PRN PAIN SCALE 4-10(Mod-Sev Ondansetron HCl 4 mg 06/20/25 06:13 Ondansetron Inj 2 Mg/Ml Inj 2 Ml IV 07/20/25 06:12 Q6H PRN NAUSEA OR VOMITING Protocol Pantoprazole Sodium 40 mg 06/20/25 09:00 06/20/25 09:09 Pantoprazole Inj 40 Mg Vial IVP 07/20/25 08:59 40 mg BID BELKYS Administration Phenol/Menthol 0 ml 06/20/25 10:49 Phenol/Na Phenolate (Chloraseptic) [place] 180 Ml Btl PO 07/20/25 10:48 Q6HR PRN SORE THROAT Sodium Bicarbonate 50 ml 06/20/25 06:08 Sodium Bicarb Inj 8.4% Syr 50 Ml Syringe IV 07/20/25 06:07 Q4HR PRN For ph <= to 7.0 Plan The patient is a 30-year-old male with a past medical history of schizophrenia, bipolar type I disorder, substance abuse disorder, suicidal ideation, diabetes mellitus, who came to the ER complaining of nausea vomiting, pain in his throat and cough. Patient also reported 1 episode of blood-tinged vomitus. Patient is admitted for management of diabetic ketoacidosis, upper GI bleed. NEURO #History of schizophrenia #History of bipolar type I disorder Dx: Patient has a history of schizophrenia and bipolar type I disorder with prior admissions for suicidal ideation and attempts Per social service director, patient is currently in process of transitioning from [facility] to [facility] Patient reported non-compliance with home meds to social service director Rx: Resume patients home quetiapine 400 mg night and Depakote 1500 mg nightly once patient is cleared for PO intake #Methamphetamine positive Dx: As per urine toxicology Rx: Counselled cessation and avoidance CARDIO #Sinus tachycardia #Hypertension Dx: On initial evaluation in ED, patient had BP of 170/124 and HR of 130 Likely secondary to throat pain and discomfort Rx: Pain control via as needed ibuprofen, ketorolac, and Chloraseptic oral spray PULM #Productive cough Dx: Patient endorsed productive cough with symptoms of nausea and vomiting No noted shortness of breath and CXR 06/20 negative for any consolidation, less suggestive of pneumonia Drainage possibly from pus in pharyngitis/tonsillitis rather than lungs Rx: Sputum cultures ordered, pending GI #Hematemasis DDx: Vida-Haynes tear, peptic ulcer Dx: Patient endorses blood in vomit prior to coming to ED Patient made NPO Rx: GI consulted, appreciate recommendations Zofran as needed to control underlying N/V Protonix 40 mg twice daily NEPHRO #High anion gap metabolic acidosis Dx: Anion gap in ED noted to be 22, likely secondary to elevated beta- hydroxybuterate from DKA given lactic acid within normal limits Albumin corrected anion gap 18.9 in ED, with albumin corrected delta ratio 0.7, suggesting an anion gap metabolic acidosis with a non-anion gap metabolic acidosis Rx: Urine electrolytes ordered to assess for cause of non-anion gap metabolic acidosis, pending Treat underlying DKA with insulin gtt #Acute kidney injury Dx: Creatinine on admission 1.5, up from patient's baseline of 1.0 Likely secondary to dehydration from vomiting and decreased oral intake from patient's DKA causing N/V Rx: Renally dose medications & avoid nephrotoxic drugs Continue with IVF hydration as tolerated Resolve underlying DKA #Hyponatremia Dx: Likely pseudohyponatremia given elevated blood glucose, sodium in ED noted to be 132 but corrected for glucose is 139 Rx: Manage underlying hyperglycemia and DKA URO #Renal calculus, right, 5mm Dx: As noted on renal ultrasound Rx: Encourage fluid hydration once patient is cleared for oral intake HEME #Polycythemia, resolved Dx: Hemoglobin in ED noted to be 18.8, likely secondary to hemoconcentration given fluid loss, noted to decrease to 15.8 after initiation of DKA protocol Rx: Patient to follow up outpatient #Leukocytosis Dx: Elevated at 17.4 in ED, likely secondary to active infection from pharyngitis/tonsillitis as well as some reactivity from patient's DKA and N/V Rx: Treat underlying infection with antibiotics ENDO #Diabetic ketoacidosis Dx: Patient noted to have glucose of 374, bicarb of 13.6, anion gap of 22, and beta- hydroxybuterate of 5.0 in ED Likely triggered by pharyngitis/tonsillitis that the patient presented with Rx: Insulin gtt and DKA protocol Treat underlying infection with antibiotics Patient NPO Renal panel every 4 hours, will start subcutaneous long acting insulin if gap closes x2 and resume oral feeds #Non-insulin dependent type 2 diabetes mellitus, uncontrolled Dx: Patient endorses history of T2DM, has never taken insulin for this condition per patient Hemoglobin A1c 06/20 noted to be >14% Rx: Resolve DKA Transition to subcutaneous insulin after resolution of DKA Recommend close outpatient follow up ID #Pharyngitis/tonsillitis Dx: Noted on physical examination on 06/20, worse on right than left, with leftward devation of uvula Pus drainage in posterior portion of oral cavity with throat pain Rx: Amoxicillin/clavulanate 875 mg twice daily (liquid formulation as patient has difficulty tolerating oral tablets) [06/20-] Blood cultures collected 06/20, pending RRx: If patient unable to tolerate liquid formulation of amoxicillin/clavulanate, then will transition to IV antibiotic MSK #No active problems SKIN #No active problems Feeding/fluids: NPO; insulin gtt Analgesia: N/A Sedation: N/A Thromboprophylaxis: SCDs Head up position: Yes Ulcer prophylaxis: Protonix Glycemic control: Bedside glucose every hour Spontaneous breathing trial: N/A Bowel care: N/A Indwelling catheters: N/A Deescalation of antibiotics: Amoxicillin/clavulanate CODE STATUS: Full Code Reason for ICU care: DKA Patient plan of care was discussed with the attending glazier supervisor, Dr. Finnegan and senior resident Dr. Mclaughlin (PGY-2). Don Payne, PGY-1
[2025-06-20 11:08] LABS: Alanine Aminotransferase 38 U/L (10-49); Albumin, Serum 4.1 gm/dL (3.5-5.0); Albumin/Globulin Ratio 1.6 (1.2-2.2); Alkaline Phosphatase 78 U/L (46-116); Anion Gap 19 (7-16); Aspartate Amino Transferase 38 U/L (0-34); BUN/Creatinine Ratio 10 Ratio (12-20); Bilirubin,Total 0.4 mg/dL (0.3-1.2); Blood Urea Nitrogen 9 mg/dL (9-23); Calcium 8.4 mg/dL (8.3-10.6); Calcium (Corrected) 8.4 mg/dL (8.5-10.1); Chloride 103 mMol/L (98-107); Creatinine (Component) 0.9 mg/dL (0.6-1.3); Estimated Creatinine Clearance 143.5 mL/min (>60); Globulin 2.5 gm/dL (2.3-3.5); Glucose 126 mg/dL (74-106); Magnesium 1.6 mg/dL (1.6-2.6); Osmolality,Calculated 268 (275-295); Sodium 134 mMol/L (136-145); Total Protein 6.6 gm/dL (5.7-8.2); eGFR > 60 See Note
[2025-06-20 11:10] LABS: Carbon Dioxide 12.2 mMol/L (20.0-31.0); Potassium 3.7 mMol/L (3.4-5.1)
[2025-06-20] MEDS: AMOXICILLIN/POT CLAV 875 TABLET 1 TAB PO (11:10)
--- NOTE | 2025-06-20 11:15 | PC.NURSE ---
Dr Vasquez at [facility] with patient
[2025-06-20] MEDS: Magnesium Sulfate 2 GM Ivpb 2 GM/50 ML BAG IV (11:41)
--- NOTE | 2025-06-20 11:41 | ESPR_ITS ---
Documentation for date of: 06/20/25 Subjective Subjective Interval history: This is a 30-year-old male with a history of diabetes who presents to the ER for throat pain and nausea and vomiting. The patient states he has vomited several times to the point where there is some blood in his emesis. Patient states that his throat pain has been ongoing for the last 2 to 3 days and does report some subjective fevers at home. He does have a psych history. In the ED his labs came back suggestive of DKA. ICU was contacted overnight for admission. This morning he still complains of significant pain in his throat. He is cantankerous and does not cooperate much with the physical exam or history. Critical Care Note Critical care time (min.): 0 Exam Vital Signs Temp Pulse Resp BP Pulse Ox O2 Del Method 98.4 F 117 H 18 159/92 H 96 Room Air 06/20/25 09:41 06/20/25 11:15 06/20/25 11:15 06/20/25 11:15 06/20/25 11:15 06/20/25 11:15 Narrative Exam General-no acute distress, obese, cantankerous, awake alert and oriented HEENT-normocephalic, atraumatic, sclera icteric, EOMI, whitish-hummel exudate noted on his tonsils especially on the right along with mild erythema of the oropharynx Chest-lungs clear to auscultation bilaterally, heart regular rhythmic, no bradycardia murmurs auscultated, exam Abdomen-soft, nontender, sounds present, no rebound or guarding Extremities-no edema lower extremities, pulses are palpable, no mottling, no clubbing, no focal deficits Drips Insulin IV fluids Physical Exam Completion Physical Exam Complete?: Yes 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 06/20/25 10:03 06/20/25 10:03 Labs: Laboratory Results - last 24 hr 06/20/25 06/20/25 06/20/25 02:02 05:30 07:05 WBC 17.4 H RBC 6.01 H Hgb 18.8 H* Hct 50.8 MCV 85 MCH 31.3 MCHC 37.0 RDW Std Deviation 38.7 Plt Count 244 Neut % (Auto) 72 Lymph % (Auto) 14 Grainger % (Auto) 13 H Eos % (Auto) 0 Baso % (Auto) 1 Neut # (Auto) 12.5 H Lymph # (Auto) 2.4 Grainger # (Auto) 2.2 H Eos # (Auto) 0.0 Baso # (Auto) 0.1 Immature Gran # (Auto) 0.11 H Absolute Nucleated RBC 0.00 Immature Gran % 1 H Nucleated RBC % 0 PT 10.4 INR 1.0 VBG pH 7.22 L VBG pCO2 46 VBG pO2 29 VBG O2 Sat (Princess) 53 L VBG Base Excess -9 L Sodium 132 L Potassium 4.4 Chloride 96 L Carbon Dioxide 13.6 L* Anion Gap 22 H BUN 12 Creatinine 1.5 H Estim Creat Clear Calc 86.1 eGFR > 60 BUN/Creatinine Ratio 8 L Glucose [address] Glu mg/dL 355 H Hemoglobin A1c > 14.0 H Calculated Osmolality 279 Lactic Acid 1.8 Calcium 9.5 Corrected Calcium 9.5 Phosphorus 3.4 Magnesium 2.0 Total Bilirubin 0.7 AST 65 H ALT 51 H Alkaline Phosphatase 100 Troponin I < 0.020 Total Protein 8.8 H Albumin 5.4 H Globulin 3.4 Albumin/Globulin Ratio 1.6 Triglycerides 2125 H Cholesterol 410 H LDL Cholesterol, Calc TNP HDL Cholesterol 15 L Cholesterol/HDL Ratio 27.3 H Lipase 25 Beta-Hydroxybutyrate/Acetoacetate 5.0 H Procalcitonin 0.10 Ur Collection Type Urine Color Urine Clarity Urine pH Ur Specific [place] Urine Protein Urine Glucose (UA) Urine Ketones Urine Blood Urine Nitrite Urine Bilirubin Urine Urobilinogen (Auto) Ur Leukocyte Esterase Urine RBC Urine WBC Ur Squamous Epith Cells Urine Bacteria Urine Opiates Screen Urine Fentanyl Screen Ur Barbiturates Screen U Amphetamin/Meth Scrn U Benzodiazepines Scrn U Cocaine Metab Screen U Marijuana (THC) Screen Ethyl Alcohol < 3.0 SARS-CoV-2 Ag (Rapid) 06/20/25 06/20/25 06/20/25 07:44 07:50 08:57 WBC RBC Hgb Hct MCV MCH MCHC RDW Std Deviation Plt Count Neut % (Auto) Lymph % (Auto) [place] % (Auto) Eos % (Auto) Baso % (Auto) Neut # (Auto) Lymph # (Auto) Grainger # (Auto) Eos # (Auto) Baso # (Auto) Immature Gran # (Auto) Absolute Nucleated RBC Immature Gran % Nucleated RBC % PT INR VBG pH VBG pCO2 VBG pO2 VBG O2 Sat (Princess) VBG Base Excess Sodium Potassium Chloride Carbon Dioxide Anion Gap BUN Creatinine Estim Creat Clear Calc eGFR BUN/Creatinine Ratio Glucose Estimated Ave Glu mg/dL Hemoglobin A1c Calculated Osmolality Lactic Acid Calcium Corrected Calcium Phosphorus Magnesium Total Bilirubin AST ALT Alkaline Phosphatase Troponin I Total Protein Albumin Globulin Albumin/Globulin Ratio Triglycerides Cholesterol LDL Cholesterol, Calc HDL Cholesterol Cholesterol/HDL Ratio Lipase Beta-Hydroxybutyrate/Acetoacetate Procalcitonin Ur Collection Type Clean Catch Urine Color Lt-Yellow Urine Clarity Clear Urine pH 5.5 Ur Specific [place] 1.033 Urine Protein 1+ A Urine Glucose (UA) 4+ A Urine Ketones 4+ A Urine Blood Trace Urine Nitrite Negative Urine Bilirubin Negative Urine Urobilinogen (Auto) Negative Ur Leukocyte Esterase Negative Urine RBC 4 H Urine WBC < 1 Ur Squamous Epith Cells 0 Urine Bacteria None Urine Opiates Screen Negative Urine Fentanyl Screen Negative Ur Barbiturates Screen Negative U Amphetamin/Meth Scrn Positive A U Benzodiazepines Scrn Negative U Cocaine Metab Screen Negative U Marijuana (THC) Screen Positive A Ethyl Alcohol SARS-CoV-2 Ag (Rapid) Negative 06/20/25 10:03 WBC 23.9 H D RBC 4.99 Hgb 15.8 D Hct 42.2 MCV 85 MCH 31.7 MCHC 37.4 H RDW Std Deviation 39.3 Plt Count 177 D Neut % (Auto) 75 Lymph % (Auto) 7 L Grainger % (Auto) 18 H Eos % (Auto) 0 Baso % (Auto) 0 Neut # (Auto) 18.0 H Lymph # (Auto) 1.6 Grainger # (Auto) 4.2 H Eos # (Auto) 0.0 Baso # (Auto) 0.1 Immature Gran # (Auto) 0.14 H Absolute Nucleated RBC 0.00 Immature Gran % 1 H Nucleated RBC % 0 PT INR VBG pH VBG pCO2 VBG pO2 VBG O2 Sat (Princess) VBG Base Excess Sodium 134 L Potassium 3.7 D Chloride 103 Carbon Dioxide 12.2 L* Anion Gap 19 H BUN 9 Creatinine 0.9 D Estim Creat Clear Calc 143.5 eGFR > 60 BUN/Creatinine Ratio 10 L Glucose [address] Glu mg/dL Hemoglobin A1c Calculated Osmolality 268 L Lactic Acid 1.1 Calcium 8.4 Corrected Calcium 8.4 L Phosphorus Magnesium 1.6 Total Bilirubin 0.4 AST 38 H ALT 38 Alkaline Phosphatase 78 D Troponin I Total Protein 6.6 Albumin 4.1 D Globulin 2.5 Albumin/Globulin Ratio 1.6 Triglycerides Cholesterol LDL Cholesterol, Calc HDL Cholesterol Cholesterol/HDL Ratio Lipase Beta-Hydroxybutyrate/Acetoacetate Procalcitonin Ur Collection Type Urine Color Urine Clarity Urine pH Ur Specific [place] Urine Protein Urine Glucose (UA) Urine Ketones Urine Blood Urine Nitrite Urine Bilirubin Urine Urobilinogen (Auto) Ur Leukocyte Esterase Urine RBC Urine WBC Ur Squamous Epith Cells Urine Bacteria Urine Opiates Screen Urine Fentanyl Screen Ur Barbiturates Screen U Amphetamin/Meth Scrn U Benzodiazepines Scrn U Cocaine Metab Screen U Marijuana (THC) Screen Ethyl Alcohol SARS-CoV-2 Ag (Rapid) Assessment & Plan Additional Assessment Additional Assessment: In summary this is a 30-year-old male admitted to the ICU for DKA a/p BI LEAD Substance abuse-counseling CV Tachycardia-secondary to pain and dehydration Resp Stable Renal Hyponatremia-mild, monitor Anion gap metabolic acidosis-patient's anion gap is currently 19 with a bicarb of 12. His delta delta is calculated at 0.5 suggesting both an anion gap and nongap acidosis. His gap acidosis is secondary to DKA and will check urine lites for his nongap. MJ-improving with IV fluids, monitor I's and O's GI Nausea and vomiting-as needed Zofran. Given his episode of a little bit of hematemesis GI was consulted given his frequent bouts of vomiting at home likely underlying [place] tears Endo DKA-patient is currently on DKA protocol with insulin drip and IV fluids. His A1c is noted to be greater than 14 suggesting extremely poor control. Once his anion gap is closed x 2 will transition to subcu insulin and sliding scale Heme Leukocytosis-secondary to tonsillitis/pharyngitis as well as DKA Polycythemia-in the setting of dehydration ID Pharyngitis/tonsillitis-check a strep throat, start Augmentin, as needed NSAID for pain and anti-inflammatory Case discussed with ICU team Labs, imaging and records reviewed Approximately 40 minutes required for evaluation, exam, review, discussion, intervention and formulation of plan of care for this acutely ill patient with DKA. Provider Notation Provider Notation: Although this document has been carefully reviewed, there may still be some phonetic and other typographical errors. These errors are purely grammatical due to imperfections in the software program and should not be construed in any way to compromise the substance of the patient's medical care during this visit. Thank you for the opportunity and privilege in assisting you with this patient's care and management.
[2025-06-20 12:05] LABS: Strep A Rapid Negative (Negative)
--- NOTE | 2025-06-20 12:15 | PC.NURSE ---
report called out to Elaina in ICU
[2025-06-20 14:22] LABS: Lactate (Lactic Acid) 1.2 mMol/L (0.4-2.0)
[2025-06-20 14:46] LABS: Albumin, Serum 4.3 gm/dL (3.5-5.0); Anion Gap 17 (7-16); BUN/Creatinine Ratio 6 Ratio (12-20); Blood Urea Nitrogen 6 mg/dL (9-23); Calcium 8.3 mg/dL (8.3-10.6); Calcium (Corrected) 8.3 mg/dL (8.5-10.1); Carbon Dioxide 16.2 mMol/L (20.0-31.0); Chloride 102 mMol/L (98-107); Creatinine (Component) 1.0 mg/dL (0.6-1.3); Estimated Creatinine Clearance 129.7 mL/min (>60); Glucose 139 mg/dL (74-106); Magnesium 2.2 mg/dL (1.6-2.6); Osmolality,Calculated 269 (275-295); Phosphorous 2.2 mg/dL (2.4-5.1); Potassium 3.7 mMol/L (3.4-5.1); Sodium 135 mMol/L (136-145); eGFR > 60 See Note
[2025-06-20] MEDS: ACETAMINOPHEN 325 MG TABLET 650 MG PO (15:58)
--- NOTE | 2025-06-20 16:09 | PC.SS ---
30YO Male, Reason for Visit: DKA Role and purpose of today?s contact was explained to patient?s mother Rachel Neville. Patient unable to provide information for initial assessment due to being asleep. Patient?s primary medical surrogate decisionmaker is his mother Rachel Neville [phone]. Patient?s mother explained patient is independent with ADL completion and ambulates independently as well. Patient recently discharged from [facility]. Patient is currently in the process of transitioning from [facility] to [facility]. Per parent, patient has been diagnosed with Schizophrenia and Bipolar I Disorder. Parent reports patient is non-compliant with psychotropic medication. PCP: ALEXANDER Cruz, last appt. was over 1yr, ago. ?PHARMACY: [facility]. Patient returning home when medically clear, mother to transport home. DISCHARGE PLAN: Home, parent Rachel to transport. ? ALT. DECISIONMAKER: Parent Rachel Neville [phone]
--- NOTE | 2025-06-20 17:47 | PD.IMCONS ---
HPI Data of Consult Requesting Physician: Lakeisha Foote MD Primary Care Provider: Physician No Primary/Family Consult Narrative Reason for consult: Hematemesis, nausea vomiting History of present illness: 30 years old male presented to the hospital with nausea vomiting and in DKA subsequently admitted to the ICU and on insulin drip Patient also has a history of schizoaffective disorders polysubstance abuse suicidal ideation diabetes mellitus type 2 and not taking any medications cc:: cc: Lakeisha Foote MD Review of Systems Review of Systems Systems Reviewed: All systems reviewed, normal except as documented Meds Home Medications and Allergies Home Medications ?Medication ?Instructions ?Recorded ?Confirmed ?Type divalproex 500 mg tablet,extended 1,500 mg PO HS 06/20/25 06/20/25 History release 24 hr (Depakote ER) quetiapine 400 mg tablet,extended 400 mg PO HS 06/20/25 06/20/25 History release 24 hr (Seroquel XR) Allergies Allergy/AdvReac Type Severity Reaction Status Date / Time No Known Allergies Allergy Verified 02/06/25 13:24 Exam Vital Signs Temp Pulse Resp BP Pulse Ox O2 Del Method 98.8 F 98 24 H 129/70 98 Room Air 06/20/25 15:35 06/20/25 17:00 06/20/25 17:00 06/20/25 17:00 06/20/25 17:00 06/20/25 17:00 Constitutional Comments: Chronically ill-appearing Routine Respiratory Exam Comments: Normal to auscultation Routine Abdominal Exam Comments: Soft nontender Results Labs 06/20/25 10:03 06/20/25 14:04 Labs: Short CBC 06/20/25 06/20/25 Range/Units 02:02 10:03 WBC 17.4 H 23.9 H D (3.8-10.6) Thou/mm3 Hgb 18.8 H* 15.8 D (13.5-16.0) g/dL Hct 50.8 42.2 (41.0-53.0) % Plt Count 244 177 D (140-440) Thou/mm3 BMP 06/20/25 06/20/25 06/20/25 02:02 10:03 14:04 Sodium 132 L 134 L 135 L Potassium 4.4 3.7 D 3.7 Chloride 96 L 103 102 Carbon Dioxide 13.6 L* 12.2 L* 16.2 L BUN 12 9 6 L Creatinine 1.5 H 0.9 D 1.0 Glucose 374 H 126 H D 139 H Calcium 9.5 8.4 8.3 Cardiac Enzymes 06/20/25 Range/Units 02:02 Troponin I < 0.020 (0.0-0.045) ng/mL Liver Function 06/20/25 06/20/25 06/20/25 Range/Units 02:02 10:03 14:04 Total Bilirubin 0.7 0.4 (0.3-1.2) mg/dL AST 65 H 38 H (0-34) U/L ALT 51 H 38 (10-49) U/L Alkaline Phosphatase 100 78 D (46-116) U/L Albumin 5.4 H 4.1 D 4.3 (3.5-5.0) gm/dL Urine 06/20/25 Range/Units 07:50 Urine Color Lt-Yellow (Lt Yel-Yel) Urine Clarity Clear (Clear/Hazy) Urine pH 5.5 (5.0-7.0) Ur Specific [place] 1.033 (1.001-1.035) Urine Protein 1+ A (Neg - Trace) Urine Glucose (UA) 4+ A (Negative) ABG Interpretation ABG results: 06/20/25 05:30 VBG pH 7.22 L VBG pCO2 46 VBG pO2 29 VBG Base Excess -9 L Assessment and Plan Additional Assessment & Plan Additional Plan: # Hematemesis with nausea vomiting once patient's comes out of DKA which hopefully in the next 24 hours Tentatively schedule the patient for an upper endoscopy with possible biopsy possible therapeutic intervention under MAC as patient has morbid obesity IV Protonix Serial CBC other medical problems include DKA schizoaffective disorder polysubstance abuse Suicidal ideation Thank you very much for the opportunity to participate in the care of this patient
[2025-06-20 17:53] LABS: Chloride,Urine Random 62.8 mMol/L (55.0-125.0); Creatinine,Random Urine 94 mg/dL (30-125); Potassium,Urine Random 47 mMol/L (12-62); Protein Total, Random Urine 74 mg/dL (1-14); Sodium,Urine Random 51.3 mMol/L (20.0-110.0)
[2025-06-20 17:56] LABS: Path Review Blood Smear Sent to Pathologist
[2025-06-20 18:57] LABS: Lactate (Lactic Acid) 1.2 mMol/L (0.4-2.0)
[2025-06-20] MEDS: INSULIN REG 100 UNITS/100 ML 100 UNIT in PRE-MIXED 1 BAG 5.284 UNIT IV (19:00)
[2025-06-20] MEDS: KETOROLAC INJ 30 MG/ML VIAL IVP (19:13)
[2025-06-20 19:19] LABS: Albumin, Serum 3.8 gm/dL (3.5-5.0); Anion Gap 11 (7-16); BUN/Creatinine Ratio 6 Ratio (12-20); Blood Urea Nitrogen < 5 mg/dL (9-23); Calcium 8.5 mg/dL (8.3-10.6); Calcium (Corrected) 8.7 mg/dL (8.5-10.1); Carbon Dioxide 20.9 mMol/L (20.0-31.0); Chloride 103 mMol/L (98-107); Creatinine (Component) 0.9 mg/dL (0.6-1.3); Estimated Creatinine Clearance 144.1 mL/min (>60); Glucose 159 mg/dL (74-106); Magnesium 2.0 mg/dL (1.6-2.6); Osmolality,Calculated 270 (275-295); Phosphorous 1.9 mg/dL (2.4-5.1); Potassium 4.2 mMol/L (3.4-5.1); Sodium 135 mMol/L (136-145); eGFR > 60 See Note
[2025-06-20] MEDS: DIVALPROEX SOD ER 250 MG TABER (NON-FORMULARY) 1500 MG PO (20:42)
[2025-06-20] MEDS: AMOXICILLIN/POT CLAV SUSP 400 MG/5 ML 875 MG PO (20:43)
[2025-06-20] MEDS: CITRIC ACID/SODIUM CITR 15 ML UDC (BICITRA) 30 ML PO (21:39)
[2025-06-20 23:52] LABS: Albumin, Serum 3.6 gm/dL (3.5-5.0); Anion Gap 11 (7-16); BUN/Creatinine Ratio 8 Ratio (12-20); Blood Urea Nitrogen 6 mg/dL (9-23); Calcium 7.9 mg/dL (8.3-10.6); Calcium (Corrected) 8.2 mg/dL (8.5-10.1); Carbon Dioxide 22.5 mMol/L (20.0-31.0); Chloride 106 mMol/L (98-107); Creatinine (Component) 0.8 mg/dL (0.6-1.3); Estimated Creatinine Clearance 162.1 mL/min (>60); Glucose 147 mg/dL (74-106); Magnesium 1.9 mg/dL (1.6-2.6); Osmolality,Calculated 278 (275-295); Phosphorous 1.6 mg/dL (2.4-5.1); Potassium 3.4 mMol/L (3.4-5.1); Sodium 139 mMol/L (136-145); eGFR > 60 See Note
[2025-06-21] VITALS (21 sets, daily range): BP systolic 120–149; BP diastolic 76–97; PULSE 84–108; RESP 16–98; TEMP 36.1–36.8; O2SAT 96–99; BMI 34.0
--- NOTE | 2025-06-21 00:44 | PC.NURSE ---
Dr. Olson at patients bedside assessing his status. Gap is closed x 2, insulin drip remains at this time. Orders to have patient try and eat regular food. Patient ate pudding and applesauce which he tolerated well. Dr. Olson ordered that he wanted the patient to eat more calories but the patient declined any further food at this point. Dr. Olson notified that patient does want to eat more. Orders to keep the insulin drip infusing per current orders.
[2025-06-21 04:15] LABS: Basophils # (Auto) 0.0 Thou/mm3 (0.0-0.2); Basophils % (Auto) 0 % (0-2.5); Eosinophils # (Auto) 0.1 Thou/mm3 (0.0-0.5); Eosinophils % (Auto) 1 % (0-10); Hematocrit 39.6 % (41.0-53.0); Hemoglobin 14.0 g/dL (13.5-16.0); Immature Granulocytes Auto 0.05 Thou/mm3 (0.00-0.00); Lymphocytes # (Auto) 1.6 Thou/mm3 (1.0-4.8); Lymphocytes % (Auto) 12 % (10-50); Mean Corpuscular HGB Conc 35.4 g/dl (31.0-37.0); Mean Corpuscular Hemoglobin 30.9 pg (25.0-35.0); Mean Corpuscular Volume 87 fL (80-100); Monocytes # (Auto) 1.6 Thou/mm3 (0.0-0.8); Monocytes % (Auto) 11 % (0-12); Neutrophils # (Auto) 10.7 Thou/mm3 (1.8-7.7); Neutrophils % (Auto) 76 % (37-80); Nucleated Red Blood Cell # 0.00 Thou/mm3 (0.00-0.00); Nucleated Red Blood Cell % 0 /100 WBC (0); Platelet Count 153 Thou/mm3 (140-440); RDW Standard Deviation 41.5 fL (35.1-43.9); Red Blood Count 4.53 Miln/mm3 (4.50-5.90); White Blood Count 14.1 Thou/mm3 (3.8-10.6)
[2025-06-21 04:24] LABS: Albumin, Serum 3.7 gm/dL (3.5-5.0); Anion Gap 9 (7-16); BUN/Creatinine Ratio 7 Ratio (12-20); Blood Urea Nitrogen < 5 mg/dL (9-23); Calcium 8.0 mg/dL (8.3-10.6); Calcium (Corrected) 8.2 mg/dL (8.5-10.1); Carbon Dioxide 23.9 mMol/L (20.0-31.0); Chloride 106 mMol/L (98-107); Creatinine (Component) 0.7 mg/dL (0.6-1.3); Estimated Creatinine Clearance 185.2 mL/min (>60); Glucose 151 mg/dL (74-106); Magnesium 1.8 mg/dL (1.6-2.6); Osmolality,Calculated 277 (275-295); Phosphorous 1.5 mg/dL (2.4-5.1); Potassium 3.3 mMol/L (3.4-5.1); Sodium 139 mMol/L (136-145); eGFR > 60 See Note
--- NOTE | 2025-06-21 04:52 | PD.RESEVENT ---
Documentation for date of: 06/21/25 Event Note Event Note: Patient is evaluated at bedside. Currently being managed for DKA with insulin drip per protocol, close anion gap X2 close to midnight at which point plan to transition to long-acting insulin and initiating diet was made. Apparently patient has an n.p.o. order by gastroenterology for possible EGD tomorrow. Also patient reported he still has odynophagia and is unable to eat a full meal. Trial was initiated with soft diet Jell-O, which patient tolerated but he refused a full meal afterwards. Continued with IV fluids and insulin drip per DKA protocol, ordered full liquid diet for breakfast and n.p.o. thereafter, given patient's pending EGD later today and reported complaint of odynophagia. Later discontinued insulin drip as patient started becoming hypoglycemic. Decided against initiating long-acting insulin due to concern for hypoglycemia and n.p.o. status . ? Continue every 2 hour fingersticks ? Continue with every 4 hour renal panel, to continue assessing for anion gap metabolic acidosis. ? IV K-Phos and magnesium replenishment per electrolytes ? If patient is unable to tolerate full liquid diet, initiate long-acting insulin following breakfast, advance diet as tolerated if okayed by gastroenterology. Quresh PGY3
[2025-06-21] MEDS: POT PHOS 15 mMol in NS 250 ML 15 MMOL/250 ML BAG 62.5 MMOL IV (05:01)
[2025-06-21] MEDS: Magnesium Sulfate 2 GM Ivpb 2 GM/50 ML BAG IV (05:01)
[2025-06-21] MEDS: KETOROLAC INJ 30 MG/ML VIAL IVP (07:14)
[2025-06-21] MEDS: INSULIN DEGLUDEC 5 UNIT/0.05 ML (PER 5 UNITS) 20 UNIT SC (07:27)
[2025-06-21] MEDS: CALCIUM CARBONATE 600 MG TABLET PO (07:30)
[2025-06-21 07:54] LABS: Albumin, Serum 3.7 gm/dL (3.5-5.0); Anion Gap 12 (7-16); BUN/Creatinine Ratio 8 Ratio (12-20); Blood Urea Nitrogen < 5 mg/dL (9-23); Calcium 7.9 mg/dL (8.3-10.6); Calcium (Corrected) 8.1 mg/dL (8.5-10.1); Carbon Dioxide 21.2 mMol/L (20.0-31.0); Chloride 105 mMol/L (98-107); Creatinine (Component) 0.6 mg/dL (0.6-1.3); Estimated Creatinine Clearance 217.1 mL/min (>60); Glucose 209 mg/dL (74-106); Magnesium 2.0 mg/dL (1.6-2.6); Osmolality,Calculated 278 (275-295); Phosphorous 2.4 mg/dL (2.4-5.1); Potassium 3.6 mMol/L (3.4-5.1); Sodium 138 mMol/L (136-145); eGFR > 60 See Note
[2025-06-21] MEDS: CITRIC ACID/SODIUM CITR 15 ML UDC (BICITRA) 30 ML PO (08:20)
--- NOTE | 2025-06-21 08:21 | PD.RESDS ---
Planned Discharge Date 06/21/25 DS: Providers Provider Date of admission: 06/20/25 06:13 Primary care physician: Physician No Primary/Family Admitting Provider: Lakeisha Foote MD Attending Provider on Admission: Lakeisha Foote MD Consults: 06/20/25 06:08 Referral Registered Dietitian Routine Comment: 06/20/25 06:33 Consult to Gastroenterology Routine Comment: Consulting Provider: Roberto Garcia Attending Provider on DC: Elli Acuña DO Discharging Provider: Elli Acuña DO Hospital Course Hospital Course Hospital course: 30 years old male presented to the hospital with nausea vomiting and in DKA subsequently admitted to the ICU and on insulin drip Patient also has a history of schizoaffective disorders polysubstance abuse suicidal ideation diabetes mellitus type 2 and not taking any medications discharge home with augmentin Time Spent with Patient Time attestation: Total time spent providing and/or coordinating discharge services: Exam Vital Signs Temp Pulse Resp BP Pulse Ox O2 Del Method 97.4 F 96 21 H 135/85 H 97 Room Air 06/21/25 04:00 06/21/25 07:00 06/21/25 07:00 06/21/25 07:00 06/21/25 07:00 06/21/25 06:00 Discharge Plan Prescriptions/Referrals Prescriptions/Med Rec: No Action divalproex [Depakote ER] 500 mg tablet extended release 24 hr 1,500 mg PO HS Patient Comments: Take 3 tablet by mouth every night at bedtime quetiapine [Seroquel XR] 400 mg tablet extended release 24 hr 400 mg PO HS Patient Comments: Take 1 tablet by mouth every night at bedtime D/C prior medications. Referrals: No Primary/Family,Physician [Primary Care Provider] Patient/Caregiver Discharge Instructions Print Language: Guinean
--- NOTE | 2025-06-21 08:37 | PD.RESDS ---
Planned Discharge Date 06/21/25 DS: Providers Provider Date of admission: 06/20/25 06:13 Primary care physician: Physician No Primary/Family Admitting Provider: Lakeisha Foote MD Attending Provider on Admission: Lakeisha Foote MD Consults: 06/20/25 06:08 Referral Registered Dietitian Routine Comment: 06/20/25 06:33 Consult to Gastroenterology Routine Comment: Consulting Provider: Roberto Garcia Attending Provider on DC: Nu Finnegan MD Discharging Provider: Nu Finnegan MD DS: Diagnosis Problem List Completed Was Problem List Reviewed/Reconciled?: Yes Hospital Course Hospital Course Hospital course: 30-year-old male with past medical history of schizoaffective disorder, substance abuse), suicidal ideation, and DM2 was admitted to the ICU on 06/12/2025 due to DKA. In the ER patient came in with initial complaints of nausea and vomiting along with pain in his throat and a cough. Patient also had reported 1 blood-tinged vomiting episode, but denied having any melena or blood in the stool. In the ER patient was initially afebrile, but hypertensive and tachycardic. Labs were relevant for leukocytosis and elevated hemoglobin to 18.8 as well as high anion gap metabolic acidosis with MJ. Lab findings were likely in the setting of DKA and hemoconcentration as well as some underlying infection. Patient triglycerides were also very elevated at 2125, cholesterol 410, and LDL could not be accurately measured due to to high levels. Beta hydroxy was 5 initially. Throughout the hospital course patient got at insulin drip and IV fluid hydration and was started on Augmentin twice daily as he was found to have tonsillitis on physical exam. He was also given ibuprofen for his swelling and pain. Throughout the hospital stay patient remained stable and his vitals remained stable. His WBC did downtrend and he did not spike any further fevers and his DKA did resolve. Patient was supposed to get a EGD by GI given the episode hematemesis, but no further active bleeding send hemoglobin has remained stable. At this time patient is stable enough to be discharged home with strict instructions to follow-up with primary care physician to get liver function panel as he will be started on atorvastatin and to continue taking Augmentin twice daily for 6 more days. He was also advised to come back to the ER if symptoms worsen or if he develop any fevers, shortness of breath, or any worsening pain. Discharge plan: - Please take all medications as prescribed - START augmentin 875 mg twice daily for complete 6 day course for pharyngitis with tonsilitis - Prescribed ibuprofen 600 mg for pain - Precribed atorvastatin 40mg at bedtime - You have been started on insulin Lantus 10 units daily - You have also been started on insulin sliding scale with the following instructions: Blood glucose insulin units to administer 150-200 3 units 201-250 5 units 251-300 8 units 301-350 10 units 351-400 12 units 451+ 15 units - Recommend follow up with GI outpatient for hematemesis - Please follow up with your PCP within one week of discharge -Please follow your primary care physician for further titration of your medications. - Recommend to follow up with your PCP to monitor liver function as you have been started on Atorvastatin - If your symptoms worsen, please seek immediate medical attention and return to your nearest emergency room. -If you don't have a PCP, you can make an appointment at the [facility]: [address] [place] [address] Problem list: #Diabetic ketoacidosis, resolved #Acute kidney injury, resolved #Pharyngitis/tonsillitis, improving #Hematemasis #High anion gap metabolic acidosis #Hyponatremia #Renal calculus, right, 5mm #Polycythemia, resolved #Leukocytosis #Non-insulin dependent type 2 diabetes mellitus, uncontrolled #History of schizophrenia #History of bipolar type I disorder #Methamphetamine positive #Sinus tachycardia #Hypertension #Productive cough Case disclosed with Attending Dr. Kain Stewart PGY2 Disclaimer: Even though this this note was dictated by speech recognition and even though it was carefully revised there may still be minor errors in wigs salesperson due to voice recognition software. Attending note Patient seen and examined resident team. In brief is a 30-year-old male who presented to the ER for throat pain and was found to have DKA along with pharyngitis and tonsillitis. He was started on p.o. antibiotics and given anti-inflammatories. He was also started on DKA protocol with insulin drip, IV fluids and labs every 4 hours. This a.m. the patient is very cantankerous and wishes to leave it is noted that his anion gap has been closed x 2 and he is on subcutaneous insulin. The patient was counseled regarding the need to take his antibiotics and follow-up with his PCP in a week. He was also counseled regarding the importance of taking his insulin. His triglyceride levels were high on arrival. They were not rechecked today and he will need to follow-up with his PCP for reevaluation of his lipid panel. It is felt that he has not been taking his insulin at home and therefore his insulin resistance has also had a deleterious effect on his lipid profile. Hopefully with his insulin this will improve and he will likely also require a statin plus minus gemfibrozil. Status at Discharge Overall status at discharge: patient is progressing back to baseline Time Spent with Patient Time attestation: Total time spent providing and/or coordinating discharge services:>30 min Time spent: Greater than 30 minutes Exam Vital Signs Temp Pulse Resp BP Pulse Ox O2 Del Method 98.2 F 108 H 21 H 144/82 H 99 Room Air 06/21/25 08:25 06/21/25 08:25 06/21/25 07:00 06/21/25 08:25 06/21/25 08:25 06/21/25 06:00 Narrative Exam Gen: A&O X 3, NAD HEENT: NCAT, EOMI, Pupils reactive FILOMENA, not icteric. External ears normal. No rhinorrhea. Moist mucous membranes and tonsils still inflammed, but improved from previous day and still some exudate appreciated. Neck: Supple, full range of motion, no observable masses, No meningeal sign. Lungs: No Respiratory distress, clear bilateral. CV: RRR, no murmurs. Abdomen: Soft, nondistended, No rebound tenderness. MSK: No joint swelling, no redness, peripheral pulses presents, lumbar with no edema. Skin: No rashes, petechiae, lesions. Neuro: No focal neurological deficits appreciated, sensory and motor intact. Psych: irritated. Discharge Plan Plan Patient Disposition: HOME (Self Care) Patient condition on transfer: Stable Care Plan Goals: Discharge Recommendations: - Please take all medications as prescribed - START augmentin 875 mg twice daily for complete 6 day course for pharyngitis with tonsilitis - Prescribed ibuprofen 600 mg for pain - Precribed atorvastatin 40mg at bedtime - You have been started on insulin Lantus 10 units daily - You have also been started on insulin sliding scale with the following instructions: Blood glucose insulin units to administer 150-200 3 units 201-250 5 units 251-300 8 units 301-350 10 units 351-400 12 units 451+ 15 units - Recommend follow up with GI outpatient for hematemesis - Please follow up with your PCP within one week of discharge -Please follow your primary care physician for further titration of your medications. - Recommend to follow up with your PCP to monitor liver function as you have been started on Atorvastatin - If your symptoms worsen, please seek immediate medical attention and return to your nearest emergency room. -If you don't have a PCP, you can make an appointment at the [facility]: [address] [place] [address] Prescriptions/Referrals Prescriptions/Med Rec: New ibuprofen 600 mg tablet 600 mg PO Q8H PRN (Reason: Pain ) Qty: 30 0RF amoxicillin-pot clavulanate 875-125 mg tablet 1 tab PO BID Qty: 12 0RF atorvastatin [Lipitor] 40 mg tablet 40 mg PO QPM Qty: 30 0RF insulin glargine [Lantus Solostar U-100 Insulin] 100 unit/mL (3 mL) insulin pen 10 unit subcut QAM Qty: 3 0RF (DME) blood-glucose meter [Blood Glucose Monitoring] Kit See Rx Instructions .Route Qty: 1 0RF Rx Instructions: As directed insulin lispro [Humalog KwikPen Insulin] 100 unit/mL insulin pen 1 sliding scale dose subcut USEASDIRECTD Qty: 15 0RF Rx Instructions: Blood glucose insulin units to administer 150-200 3 units 201-250 5 units 251-300 8 units 301-350 10 units 351-400 12 units 451+ 15 units (DME) pen needle, diabetic [Comfort EZ Pen [place]] 29 gauge x 1/2 needle See Rx Instructions .Route Qty: 100 0RF Rx Instructions: As directed (DME) lancets [Comfort EZ Lancets] 28 gauge misc See Rx Instructions .Route Qty: 100 0RF Rx Instructions: As directed (DME) Micro Blood Glucose Strip See Rx Instructions .Route Qty: 50 0RF Rx Instructions: As directed Continued divalproex [Depakote ER] 500 mg tablet extended release 24 hr 1,500 mg PO HS Patient Comments: Take 3 tablet by mouth every night at bedtime quetiapine [Seroquel XR] 400 mg tablet extended release 24 hr 400 mg PO HS Patient Comments: Take 1 tablet by mouth every night at bedtime D/C prior medications. Referrals: No Primary/Family,Physician [Primary Care Provider] Patient/Caregiver Discharge Instructions Other Discharge Activity Instructions:: Discharge Recommendations: - Please take all medications as prescribed - START augmentin 875 mg twice daily for complete 6 day course for pharyngitis with tonsilitis - Prescribed ibuprofen 600 mg for pain - Precribed atorvastatin 40mg at bedtime - You have been started on insulin Lantus 10 units daily - You have also been started on insulin sliding scale with the following instructions: Blood glucose insulin units to administer 150-200 3 units 201-250 5 units 251-300 8 units 301-350 10 units 351-400 12 units 451+ 15 units - Recommend follow up with GI outpatient for hematemesis - Please follow up with your PCP within one week of discharge -Please follow your primary care physician for further titration of your medications. - Recommend to follow up with your PCP to monitor liver function as you have been started on Atorvastatin - If your symptoms worsen, please seek immediate medical attention and return to your nearest emergency room. -If you don't have a PCP, you can make an appointment at the [facility]: [address] [place] [address] Education Materials: Diabetes Treating Minor Foot ..., Diabetes: Caring for Your Body, Diabetic Ketoacidosis Print Language: Bengali Stand Alone Forms: Maricel Award Info., Patient Portal Info Letter Discharge Order Discharge Orders: Discharge (Routine); Ordered 06/21/25 Ordered By: Elli Acuña Quality Discharge Quality Measures VTE prophylaxis
[2025-06-27 06:18] LABS: Valporic Acid (Depak)* <4.0 mg/L (50.0-100.0)
== END 2025-06-21 09:48 | disposition home or self-care (01) | DRG 420 ==
LOC: SERX 06:11 → S2SX 06-21 08:30 → SERHOLD 06-25 08:37 → S2SX 06-25 08:37
PROVIDERS: Physician Assistant; Student in an Organized Health Care Education/Training Program; Admitting Provider Student in an Organized Health Care Education/Training Program; Emergency Provider Emergency Medicine; Visit Provider Internal Medicine
DX: E11.10 Type 2 diabetes mellitus with ketoacidosis without coma (principal); N17.9 Acute kidney failure, unspecified; J03.90 Acute tonsillitis, unspecified; E87.1 Hypo-osmolality and hyponatremia; F31.9 Bipolar disorder, unspecified; N20.0 Calculus of kidney; F25.9 Schizoaffective disorder, unspecified; F15.10 Other stimulant abuse, uncomplicated; F17.200 Nicotine dependence, unspecified, uncomplicated; I10 Essential (primary) hypertension; K92.0 Hematemesis; E11.649 Type 2 diabetes mellitus with hypoglycemia without coma; E86.0 Dehydration; R00.0 Tachycardia, unspecified; R05.9 Cough, unspecified; D75.1 Secondary polycythemia; Z79.84 Long term (current) use of oral hypoglycemic drugs; Z79.899 Other long term (current) drug therapy; Z91.148 Patient's other noncompliance with medication regimen for other reason
CPT/HCPCS: 36415; 71045; 76770; 80053; 80061; 80069; 80164; 80307; 80320; 81001; 82010; 82270; 82436; 82570; 82803; 83036; 83605; 83690; 83735; 84100; 84133; 84145; 84156; 84300; 84484; 85025; 85610; 87040; 87081; 87205; 87651; 87811; 93005; 93225; 96361; 96374; 96375; 99285; J0696; J1815; J1885; J2270; J2405; J2470; J2765; J3475; J3480; J7030; J7120; J7121; J7999; A9270; G0480